=== PATIENT | female | born 1950 | race Caucasian/White ===

== ENCOUNTER 2019-04-30 06:22 | Day surgery (SDC) | payer MEDICARE, OTHER, SELFPAY ==
[2019-04-30] VITALS (7 sets, daily range): BP systolic 114–146; BP diastolic 59–81; PULSE 55–64; RESP 12–18; TEMP 36.6–36.8; O2SAT 96–100; BMI 29.0
--- NOTE | 2019-04-30 | PATH_ITS ---
[facility] Accession Number: [id number] . 01 Material submitted: . PART A: duodenum - DUODENAL BIOPSIES PART B: gastrointestinal site - GASTRIC ANTRUM BIOPSY PART C: gastrointestinal site - GASTRIC POLYP X2 PART D: gastrointestinal site - GASTRIC CARDIA BIOPSY PART E: esophagus - DISTAL ESOPHAGUS BIOPSIES . 02 Diagnosis: A. Duodenum, Biopsies: Duodenal mucosa with no diagnostic abnormality. Negative for active inflammation, features of sprue, dysplasia, or malignancy. . B. Stomach, Antrum, Biopsy: Antral mucosa with reactive gastropathy and mild chronic gastritis. Negative for Helicobacter by immunohistochemistry. Negative for intestinal metaplasia. Negative for dysplasia and malignancy. . C. Stomach, Polyp x2, Biopsy: Fundic gland polyp. Gastric hyperplastic polyp. Negative for intestinal metaplasia. No evidence of Helicobacter on H/E stain. Negative for dysplasia and malignancy. . D. Stomach, Cardia, Biopsy: Cardia type mucosa with foveolar hyperplasia. Negative for Helicobacter by immunohistochemistry. Negative for intestinal metaplasia. Negative for dysplasia and malignancy. . E. 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 Chronic active inflammation is also present. Negative for dysplasia and malignancy. . [facility] 05/04/2019 1722 Local . 02 Electronically signed: . Sherita Mccormick MD, Pathologist NPI- [id number] . 01 Gross description: . Part A: DUODENAL BIOPSIES: Received in formalin is 1 fragment(s) of noel, soft tissue measuring 0.3 x 0.2 x 0.2 cm submitted entirely in 1 cassette(s) Part B: GASTRIC ANTRUM BIOPSY: Received in formalin is 1 fragment(s) of noel, soft tissue measuring 0.2 x 0.1 x 0.1 cm submitted entirely in 1 cassette(s) Part C: GASTRIC POLYP X2: Received in formalin are 3 fragment(s) of noel, soft tissue measuring 0.1 x 0.1 x 0.1 cm to 0.6 x 0.5 x 0.5 cm submitted entirely in 1 cassette(s) Part D: GASTRIC CARDIA BIOPSY: Received in formalin are 2 fragment(s) of noel, soft tissue measuring 0.1 x 0.1 x 0.1 cm to 0.2 x 0.2 x 0.2 cm submitted entirely in 1 cassette(s) Part E: DISTAL ESOPHAGUS BIOPSIES: Received in formalin are 3 fragment(s) of noel, soft tissue measuring 0.1 x 0.1 x 0.1 cm to 0.2 x 0.1 x 0.1 cm submitted entirely in 1 cassette(s) /[facility] [place] 04/30/2019 2144 Local . 02 Microscopic: . B, D. Immunohistochemical stains for Helicobacter were performed on blocks B and D in order to evaluate for Helicobacter organisms and are both negative. The control stain showed appropriate reactivity. . E. An AB/PAS stain was performed to evaluate for intestinal metaplasia and is positive. The control stain showed appropriate reactivity. . * This test was developed and its performance characteristics determined by [facility]. It has not been cleared or approved by the U.S. Food and Drug Administration. The FDA has determined that such clearance or approval is not necessary. This test is used for clinical purposes. It should not be regarded as investigational or for research. . 02 Pathologist provided ICD-10: K22.70 . 02 CPT . 715703, 885463, 765016, 369827, 916229, Q57971, 264865 Performed at: 01 [facility] [address], [place], [place] [id number] MD Praful Lora MD Phone: [phone] Performed at: 02 [facility] [address] [place], [place] [id number] MD Sherita Mccormick MD Phone: [phone]
[2019-04-30] MEDS: SODIUM CHLORIDE 0.9% 1,000 ML 200 ML IV ×2 (07:10→08:27)
--- NOTE | 2019-04-30 07:44 | PM.PREOP ---
Pre-operative Note Interval Note History & Physical reviewed/Exam performed by Physician: Yes Changes to H&P: No ASA Class (for procedural sedation): II
--- NOTE | 2019-04-30 08:16 | PM.OP.ENDO ---
Operative Date/Time/Diagnoses Date of procedure: 04/30/19 Time of procedure: 08:16 Pre-op diagnosis: Acid refux, abdominal pain, constipation Post-op diagnosis: other (Gastritis, gastric polyps, hill grade 4 hiatal hernia; enodscopic noble's esophagus ) Procedure & Clinicians Study performed: Esophageal gastroduodenoscopy with biopsies of duodenum, gastric antrum, gastric polyps with hot snare, gastric cardia, GE junction with cold forceps. Attempted colonoscopy, but discontinued at splenic flexure due to poor prep and solid stool in the colon. Same procedure as scheduled: Yes Indications: Acid reflux, abdominal pain, constipation, personal history of polyps Surgeon: Delores Moralez Procedure Notes SCOAP/Timeout: Which performed Procedure in detail: The patient was brought to the room and placed in left lateral decubitus position with all bony prominences padded. A time-out was performed and then the patient was given procedural sedation starting with 2 mg of Versed and [100] mcg of fentanyl. Total of 6 mg of Versed and 150 micro g of fentanyl were given for the entire procedure. Vitals were monitored throughout the procedure and remained stable. Once adequately sedated the procedure was begun. A bite block was used to protect the patient's teeth, lips, and tongue. The gastroscope was placed through the bite block and over the tongue, and into the esophagus without incident. A tubular view of the esophagus was maintained as I advanced the scope down into the stomach. The scope was advanced all way to the 2nd and 3rd portion of the duodenum. The duodenum appeared normal, with a slight bit of erythema, and this was biopsied. I then pulled back out into the stomach and there was some low-grade antral gastritis, which was biopsied. There are multiple polyps in the stomach consistent with PPI use, and the 2 largest of these were removed for biopsy. I then retroflexed and looked up into the hiatus, and saw a Hill grade 4 hiatal hernia which was about 3 cm x 3 cm. There were more polyps by the gastric cardia, and these were removed for biopsy with cold forceps. Pulling back from the stomach into the esophagus I noted at her Z-line was irregular, and there were tongues of salmon-colored mucosa coming up into the esophagus for about 1 cm or greater. These were biopsied. The gastroscope was then withdrawn gradually out of the esophagus, the rest of which appeared fairly normal. The patient tolerated this portion the procedure well, and she was then transitioned for a colonoscopy. A rectal exam was then performed revealing [no significant abnormalities]. The colonoscope was then introduced to the rectum and advanced gradually, but there was solid stool in the way, which inhibited are view of the colon. It was not safe to proceed in that was non adequate view of the colon in order to do an appropriate colonoscopy. I got part way through the sigmoid colon and determined that the patient would need to re-prepped and receive another colonoscopy at a future date. At this point the procedure was discontinued. The scope was then withdrawn from the rectum the procedure was concluded. The patient tolerated the procedure well and was transferred to the PACU in stable condition. Scope withdrawal time: NA Sedation minutes: 48 Findings: Noble's esophagus, gastritis, hiatal hernia and polyp (Gastric) Specimen(s): other (Gastric polyps, gastric biopsies, duodenal biopsies, esophageal biopsies) Complications: none Impression: Mild gastritis, Noble's esophagus, gastric polyps Post-procedure Recommendations: Will call with biopsy results Plan for aftercare: Once we get the biopsy results, will decide on next steps regarding the upper GI portion. At some point she will need a repeat colonoscopy. We may coordinate this with the future upper endoscopy for surveillance. Follow up: weeks (2) Disposition: PACU
[2019-04-30] MEDS: LIDOCAINE 4% SOLN 50 ML 20 ML TOP (08:33)
[2019-04-30] MEDS: fentaNYL 250 MCG/5 ML INJ IV (08:34)
[2019-04-30] MEDS: MIDAZOLAM 5 MG/5 ML VIAL IV (08:34)
--- NOTE | 2019-04-30 09:42 | SUR.PHASEII ---
Dr. Moralze to bedside, spoke extensively to pt and her . Pt left when ready pt left in stable condition.
== END 2019-04-30 09:33 | disposition home or self-care (01) ==
PROVIDERS: PCP Internal Medicine; Visit Provider Surgery
PROC: 0DJ08ZZ Inspection of Upper Intestinal Tract, Via Natural or Artificial Opening Endoscopic (ICD-10-PCS; CPT 43235; principal; 2019-04-30 07:45)
PROC: 0DJD8ZZ Inspection of Lower Intestinal Tract, Via Natural or Artificial Opening Endoscopic (ICD-10-PCS; CPT 45378; 2019-04-30 07:45)
DX: K59.09 Other constipation (principal); R10.9 Unspecified abdominal pain; K21.9 Gastro-esophageal reflux disease without esophagitis; K29.50 Unspecified chronic gastritis without bleeding; K31.9 Disease of stomach and duodenum, unspecified; K22.70 Barrett's esophagus without dysplasia; Z53.09 Procedure and treatment not carried out because of other contraindication
CPT/HCPCS: 43251; 43239; 45330; 45378; 99152; 99153; J2250; J3010

== ENCOUNTER 2019-05-28 07:16 | Day surgery (SDC) | payer MEDICARE, OTHER, SELFPAY ==
[2019-05-28] VITALS (8 sets, daily range): BP systolic 105–135; BP diastolic 47–69; PULSE 50–82; RESP 10–18; TEMP 36.1–36.8; O2SAT 93–99; BMI 29.0
--- NOTE | 2019-05-28 07:54 | PM.HP.1 ---
History of Present Illness History of Present Illness Date Patient Seen: 05/28/19 Time Patient Seen: 07:54 Chief complaint: [id number] Narrative: This is a 68-year-old woman with history of GERD, chronic constipation, asthma, fibromyalgia, arthritis, glomerular nephritis of the right kidney, history of tubal ligation, history of laparoscopy who had EGD and upper endoscopy April 30, but was unable to complete the colonoscopy because of incomplete prep. Prior to that she had a colonoscopy in 2016 during which colon polyps were found. She was told to repeat colonosocpy in three years. She returns today for second attempt at colonoscopy. She has been taking double dose PPI and has had significant improvement in her GERD symptoms. ROS: She has blood in the urine from time to time which he says is secondary to her glomerular nephritis, joint pain joint swelling and muscle aches related to her arthritis, easy bruising and easy bleeding which she believes is related to her Celebrex medication. Thirteen system review is otherwise negative other than as mentioned below and in HPI. PE: GENERAL: Well groomed and cooperative. Appears stated age. Answers questions promptly and appropriately. Vital signs noted. HENT: Normocephalic, atraumatic. Hearing intact. Oral mucosa is pink and moist. EYES: Conjunctiva pink, sclera white, no periorbital swelling. CARDIOVASCULAR: Regular rate. No pedal edema. RESPIRATORY: Non-tachypneic, breathing comfortably on room air. GASTROINTESTINAL: Abdomen soft; well-healed umbilical incisional scar, mildly distended, no masses, no tenderness GENITALURINARY: No flank tenderness. MUSCULOSKELETAL: Equal tone and mass bilaterally. SKIN: Warm, dry, soft, appropriate color for ethnicity. No other lesions, rashes, or wounds. NEURO: Fine resting tremor. Alert and Oriented X 3. No gross sensory deficits, or cognitive issues. PSYCH: Appropriate affect and mood. Patient History Medical History Achilles tendon injury (Acute) Acid reflux (Acute) Adhesion of intestine (Acute) Arthritis (Acute) Asthma (Acute) Fibromyalgia (Acute) Nephritis (Acute) Reflex neurogenic bladder (Acute) Tonsillectomy planned (Acute) Surgical History History of Achilles tendon repair (Acute) History of bilateral tubal ligation (Acute) History of laparoscopy (Acute) History of tonsillectomy (Acute) History of tubal ligation (Inactive) Hx of breast biopsy (Acute) Family & Social History Social History: household members spouse Tobacco & Substance use: Smoking Status Never smoker alcohol intake current alcohol intake frequency 0-2 drinks per day Substance Use Type prescription drug Meds Home Medications and Allergies Home Medications Medication Instructions Recorded Confirmed Type albuterol sulfate 90 mcg/actuation 2 puff INHALATION Q6H PRN 04/08/19 05/28/19 History aerosol inhaler aloe vera 25 mg capsule 25 mg PO DAILY 04/08/19 05/28/19 History calcium citrate 600 mg PO DAILY 04/08/19 05/28/19 History celecoxib 200 mg capsule 200 mg PO BID 04/08/19 05/28/19 History cetirizine 10 mg capsule 10 mg PO DAILY cap 04/08/19 05/28/19 History cranberry 500 mg capsule 500 mg PO DAILY 04/08/19 05/28/19 History fluticasone propionate 110 2 puff INHALATION BID 04/08/19 05/28/19 History mcg/actuation HFA aerosol inhaler lactobacillus combination no.4 15 15,000 mmu cells PO DAILY 04/08/19 05/28/19 History billion cell capsule levothyroxine 75 mcg capsule 75 mcg PO DAILY 04/08/19 05/28/19 History lysine 1,000 mg tablet 1,000 mg PO DAILY 04/08/19 05/28/19 History multivitamin 1 tab PO DAILY 04/08/19 05/28/19 History niacin 100 mg tablet 100 mg PO BEDTIME 04/08/19 05/28/19 History omega-3 fatty acids-fish oil 300 1 cap PO DAILY 04/08/19 05/28/19 History mg-500 mg capsule pregabalin 150 mg capsule 150 mg PO BEDTIME 04/08/19 05/28/19 History rabeprazole 20 mg tablet,delayed 20 mg PO BID 04/08/19 05/28/19 History release sertraline 100 mg tablet 150 mg PO DAILY 04/08/19 05/28/19 History sulfamethoxazole 800 1 tab PO DAILY 04/08/19 05/28/19 History mg-trimethoprim 160 mg tablet zaleplon 10 mg capsule 10 mg PO DAILY PRN 04/08/19 05/28/19 History sodium,potassium,mag sulfates 17.5 177 ml PO DAILY #354 ml 05/26/19 Rx gram-3.13 gram-1.6 gram oral soln Allergies Allergy/AdvReac Type Severity Reaction Status Date / Time epinephrine Allergy Severe BREATHING Verified 05/28/19 07:42 latex Allergy Severe RASH Verified 05/28/19 07:42 nitrofurantoin Allergy Severe BREATHING Verified 05/28/19 07:42 [From Macrodantin] PROBLEM soap [From Betadine] Allergy Severe ROSE Verified 05/28/19 07:42 povidone-iodine Allergy Intermediate ROSE Verified 05/28/19 07:42 [From Betadine] anesthesia - some types AdvReac Mild N&V Uncoded 04/30/19 07:24 Assessment & Plan Assessment and plan (1) Personal history of colonic polyps: Problem details: Risks and benefits of screening colonoscopy and possible polypectomy were discussed with the patient including risk of bleeding, perforation, need for additional procedures, risks of anesthesia. The patient desires to proceed with the colonoscopy procedure. Current visit: No Status: Acute (2) Chronic constipation: Current visit: No Status: Acute Quality VTE Deep Vein Thrombosis/Pulmonary Embolism Present on Admission: No
[2019-05-28] MEDS: SODIUM CHLORIDE 0.9% 1,000 ML 200 ML IV (07:59)
--- NOTE | 2019-05-28 09:10 | PM.OP.ENDO ---
Operative Date/Time/Diagnoses Date of procedure: 05/28/19 Time of procedure: 09:10 Pre-op diagnosis: Personal history of colon polyps Post-op diagnosis: other (Mild diverticulosis, no polyps seen on this exam) Procedure & Clinicians Study performed: Surveillance colonoscopy Same procedure as scheduled: Yes Indications: Personal history of colon polyps Surgeon: Delores Moralez Procedure Notes SCOAP/Timeout: Performed Procedure in detail: The patient was brought to the room and placed in left lateral decubitus position with all bony prominences padded. A time-out was performed and then the patient was given procedural sedation starting with 2 mg of Versed and [100] mcg of fentanyl. Total of 7 mg of Versed and 250 micro g of fentanyl were given for the entire procedure. Vitals were monitored throughout the procedure and remained stable. Once adequately sedated the procedure was begun. A rectal exam was performed revealing [no abnormalities]. The colonoscope was then introduced to the rectum and advanced to the cecum in the usual fashion. The colon was very tortuous, and I had to switch from pediatric to adult scope during the procedure because I was not able to navigate the twists in her colon with a pediatric scope. The patient had a significant discomfort during the procedure, similar to what you see in someone who has underlying IBS. []The cecum was identified by the appendiceal orifice, the mucosal tri-fold, and the ileocecal valve. The scope was then retracted while rotating side to side and examining each mucosal fold. Mild diverticulosis was seen in the sigmoid colon. No polyps or masses were seen. Prep was adequate. [] At the conclusion of the procedure retroflexion was performed and [small grade 1-2 internal hemorrhoids without stigmata of bleeding were seen]. The scope was then withdrawn from the rectum the procedure was concluded. The patient tolerated the procedure well and was transferred to the PACU in stable condition. Scope withdrawal time: 8 Sedation minutes: 35 Findings: diverticulosis Specimen(s): none sent Complications: none Impression: Very tortuous colon, low-grade diverticulosis, otherwise normal Post-procedure Recommendations: Other recommendation (Colonoscopy in 7 years due to personal history of colon polyps, if healthy enough for the procedure that time) Follow up: as needed Disposition: PACU
[2019-05-28] MEDS: MIDAZOLAM 5 MG/5 ML VIAL IV (09:13)
[2019-05-28] MEDS: fentaNYL 250 MCG/5 ML INJ IV (09:14)
--- NOTE | 2019-05-28 09:39 | SUR.PHASEI ---
Patient sitting up in stretcher, denies pain, VSS. Taking ice chips without difficulty. Abdomen soft.
== END 2019-05-28 10:10 | disposition home or self-care (01) ==
PROVIDERS: PCP Internal Medicine; Referring Provider Surgery; Visit Provider Surgery
PROC: 0DJD8ZZ Inspection of Lower Intestinal Tract, Via Natural or Artificial Opening Endoscopic (ICD-10-PCS; CPT 45378; principal; 2019-05-28 08:30)
DX: Z12.11 Encounter for screening for malignant neoplasm of colon (principal); Z86.010 Personal history of colon polyps; K57.30 Diverticulosis of large intestine without perforation or abscess without bleeding
CPT/HCPCS: G0105; 99152; 99153; J2250; J3010

== ENCOUNTER 2019-08-25 10:59 | Emergency (ER) | payer MEDICARE, OTHER, SELFPAY ==
[2019-08-25] VITALS (7 sets, daily range): BP systolic 139–188; BP diastolic 63–111; PULSE 50–63; RESP 12–19; TEMP 36.9; O2SAT 97–99; BMI 28.9
[2019-08-25 11:48] LABS: Add Manual Diff / Slide Review NO; Basophils Absolute Auto 100 /uL (0-100); Basophils Percent Auto 0.7 % (0-2); Eosinophils Absolute Auto 0 /uL (0-450); Eosinophils Percent Auto 0.6 % (2-4); Hematocrit 37.4 % (36-46); Hemoglobin 12.3 g/dL (12.0-16.0); Lymphocytes Absolute Auto 1600 /uL (1100-4500); Lymphocytes Percent Auto 20.2 % (25-40); Mean Corpuscular HGB Conc 32.9 % (30-36); Mean Corpuscular Hemoglobin 29.9 PG (26-34); Mean Corpuscular Volume 90.9 fL (80-100); Monocytes Absolute Auto 500 /uL (0-900); Monocytes Percent Auto 6.7 % (3-14); Neutrophils Absolute Auto 5800 /uL (1500-7000); Neutrophils Percent Auto 71.8 % (50-75); Platelet Count 208 X10^3/uL (150-400); Red Blood Cell Count 4.11 X10^6/uL (4.0-5.2); Red Cell Distribution Width 13.3 % (11.6-14.8)
--- NOTE | 2019-08-25 11:51 | DI.CT.S_ITS ---
PROCEDURE: CT HEAD/BRAIN WO CON INDICATIONS: blurry vision, weakness TECHNIQUE: Noncontrast 4.5 mm thick angled axial sections acquired from the foramen magnum to the vertex, with coronal and sagittal reformats. For radiation dose reduction, the following was used: automated exposure control, adjustment of mA and/or kV according to patient size. COMPARISON: None. FINDINGS: Image quality: Excellent. CSF spaces: Basal cisterns are patent. No extra-axial fluid collections. Ventricles are normal in size and shape. Brain: No midline shift. No intracranial masses or hemorrhage. Garber-white matter interface is normal. Skull and face: Calvarium and visualized facial bones are intact, without suspicious lesions. Sinuses: Visualized sinuses and mastoids are clear. IMPRESSION: Unremarkable head CT. No evidence of acute stroke, hemorrhage, or mass. Dictated by: Mino Wick M.D. on 08/25/2019 at 11:12 Approved by: Mino Wick M.D. on 08/25/2019 at 11:13
--- NOTE | 2019-08-25 11:52 | DI.CT.S_ITS ---
PROCEDURE: CT CERVICAL SPINE WO CON INDICATIONS: mult falls TECHNIQUE: Noncontrast 3 mm thick sections acquired from the skull base to the T4 level. Sagittal and coronal reformats were then constructed. For radiation dose reduction, the following was used: automated exposure control, adjustment of mA and/or kV according to patient size. COMPARISON: None. FINDINGS: Image quality: Excellent. Bones: No fractures or dislocations. Visualized superior ribs are intact. Moderate to severe cervical spondylitic change, with multilevel prominent left greater than right facet arthropathy and disc height loss and uncovertebral joint osteophyte rotation centered at C5-C6 and C6-C7. Soft tissues: Prevertebral soft tissues are normal in thickness. No paravertebral hematomas. No apical pneumothoraces. IMPRESSION: 1. No evidence acute cervical fracture or dislocation. 2. Moderate to severe cervical spondylitic change. Dictated by: Mino Wick M.D. on 08/25/2019 at 11:13 Approved by: Mino Wick M.D. on 08/25/2019 at 11:22
[2019-08-25 11:54] LABS: Alanine Aminotransferase 15 IU/L (<35); Albumin Globulin Ratio 1.4 (1.0-2.8); Alkaline Phosphatase 92 U/L (38-126); Aspartate Aminotransferase 24 IU/L (14-36); BUN Creatinine Ratio 32.8 (6-22); Bilirubin Total 0.4 mg/dL (0.2-1.3); Blood Urea Nitrogen 19 mg/dL (7-17); Calcium 8.6 mg/dL (8.4-10.2); Carbon Dioxide 23 mmol/L (22-32); Chloride 108 mmol/L (98-107); Estimated Glomerular Filt Rate > 60.0 mL/min (>60); Ethanol (ETOH) < 10 mg/dL; Globulin 2.9 g/dL (1.7-4.1); Glucose 107 mg/dL (80-110); HEMOLYSIS < 15 (0-50); Potassium 3.7 mmol/L (3.4-5.1); Sodium 140 mmol/L (137-145); Total Protein 6.9 g/dL (6.3-8.2)
--- NOTE | 2019-08-25 11:57 | ED.NEUROSD ---
HPI - Neuro Symptoms/Deficit <Deidre Romero, UNISAW OPERATOR-BC - Last Filed: 08/25/19 16:13> General Chief Complaint: Neuro Symptoms/Deficit Stated Complaint: Neuro Symptoms Time Seen by Provider: 08/25/19 11:15 Source: patient and EMS Mode of arrival: EMS Limitations: no limitations History of Present Illness HPI Narrative: The patient is a 68-year-old female nonsmoker with a history of colonic polyps and constipation who presents with a chief complaint of neurological changes. She states she has had chronic left lower weakness has been ongoing for almost a year at this point. She has seen a cloth calender for this, had a referral to a neurologist but was not able to get in because of coronavirus. She states she woke up at this morning at 4:00 a.m. and felt her baseline. Then she went back to bed, woke up at 9:00 a.m. and had 2 minutes of blurry vision. She also notes decreased knitted cloth examiner strength in her right hand. She states she has ?clumsy at home and trips a lot.She states that she has had multiple falls recently at home. She currently states that her vision is back at baseline. She is concerned as her daughter has multiple sclerosis. She denies any fever, chest pain, shortness of breath. She denies any numbness or tingling. She denies any new incontinence. 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 The patient reports multiple falls at home a she is ?clumsy. On Anticoagulants: No Related Data Home Medications Medication Instructions Recorded Confirmed albuterol sulfate 90 mcg/actuation 2 puff INHALATION Q6H PRN 04/08/19 05/28/19 aerosol inhaler aloe vera 25 mg capsule 25 mg PO DAILY 04/08/19 05/28/19 calcium citrate 600 mg PO DAILY 04/08/19 05/28/19 celecoxib 200 mg capsule 200 mg PO BID 04/08/19 05/28/19 cetirizine 10 mg capsule 10 mg PO DAILY cap 04/08/19 05/28/19 cranberry 500 mg capsule 500 mg PO DAILY 04/08/19 05/28/19 fluticasone propionate 110 2 puff INHALATION BID 04/08/19 05/28/19 mcg/actuation HFA aerosol inhaler lactobacillus combination no.4 15 15,000 mmu cells PO DAILY 04/08/19 05/28/19 billion cell capsule levothyroxine 75 mcg capsule 75 mcg PO DAILY 04/08/19 05/28/19 lysine 1,000 mg tablet 1,000 mg PO DAILY 04/08/19 05/28/19 multivitamin 1 tab PO DAILY 04/08/19 05/28/19 niacin 100 mg tablet 100 mg PO BEDTIME 04/08/19 05/28/19 omega-3 fatty acids-fish oil 300 1 cap PO DAILY 04/08/19 05/28/19 mg-500 mg capsule pregabalin 150 mg capsule 150 mg PO BEDTIME 04/08/19 05/28/19 rabeprazole 20 mg tablet,delayed 20 mg PO BID 04/08/19 05/28/19 release sertraline 100 mg tablet 150 mg PO DAILY 04/08/19 05/28/19 sulfamethoxazole 800 1 tab PO DAILY 04/08/19 05/28/19 mg-trimethoprim 160 mg tablet zaleplon 10 mg capsule 10 mg PO DAILY PRN 04/08/19 05/28/19 Previous Rx's Medication Instructions Recorded sodium,potassium,mag sulfates 17.5 177 ml PO DAILY #354 ml 05/26/19 gram-3.13 gram-1.6 gram oral soln Allergies Allergy/AdvReac Type Severity Reaction Status Date / Time epinephrine Allergy Severe BREATHING Verified 08/25/19 11:22 latex Allergy Severe RASH Verified 08/25/19 11:22 nitrofurantoin Allergy Severe BREATHING Verified 08/25/19 11:22 [From Macrodantin] PROBLEM soap [From Betadine] Allergy Severe ROSE Verified 08/25/19 11:22 povidone-iodine Allergy Intermediate ROSE Verified 08/25/19 11:22 [From Betadine] anesthesia - some types AdvReac Mild N&V Uncoded 08/25/19 11:22 Review of Systems <TERRY Pereyra- - Last Filed: 08/25/19 16:13> Review of Systems Narrative: GENERAL: Denies chills, fatigue, malaise, fever, sweats. HEENT: Denies sinus pain, ear pain, sore throat, difficulty swallowing, dizziness. RESPIRATORY: Denies dyspnea, cough, wheezing, hemoptysis, sputum. CARDIOVASCULAR: Denies chest pain, palpitations, orthopnea, edema, GASTROINTESTINAL: Denies nausea, vomiting, abdominal pain, diarrhea, constipation, melena. : Denies dysuria, frequency, incontinence, hematuria, urinary retention. MUSCULOSKELETAL: See HPI SKIN: Denies rash, skin lesions, or other NEUROLOGIC: She had PI PSYCHIATRIC: No concerning psychosocial issues. 12 point review of systems is negative except for those stated above Patient History <LOREN Pereyra - Last Filed: 08/25/19 16:13> Medical History Achilles tendon injury (Acute) Acid reflux (Acute) Adhesion of intestine (Acute) Arthritis (Acute) Asthma (Acute) Fibromyalgia (Acute) Nephritis (Acute) Reflex neurogenic bladder (Acute) Tonsillectomy planned (Acute) Surgical History History of Achilles tendon repair (Acute) History of bilateral tubal ligation (Acute) History of laparoscopy (Acute) History of tonsillectomy (Acute) History of tubal ligation (Inactive) Hx of breast biopsy (Acute) Social History household members: spouse Smoking Status: Never smoker alcohol intake: current Smoking Status: Never smoker alcohol intake frequency: 0-2 drinks per day Substance Use Type: does not use Exam <LOREN Pereyra - Last Filed: 08/25/19 16:13> Narrative Exam Narrative: GENERAL: This is a well-nourished, well-developed patient, no acute distress HEAD: Atraumatic. Normocephalic. No temporal or scalp tenderness. EYES: Pupils equal round and reactive. Extraocular motions intact. No scleral icterus. No injection or drainage. ENT: Nose without bleeding, purulent drainage or septal hematoma. Throat without erythema, tonsillar hypertrophy or exudate. Uvula midline. Airway patent. NECK: Trachea midline. No JVD or lymphadenopathy. Supple, nontender, no meningeal signs. CARDIOVASCULAR: Regular rate and rhythm RESPIRATORY: Clear to auscultation. Breath sounds equal bilaterally. No wheezes, rales, or rhonchi. No cough. No increased respiratory effort. No accessory muscle use. GASTROINTESTINAL: Abdomen soft, non-tender, nondistended. No hepato-splenomegaly, or palpable masses. No guarding. EXTREMITIES: No clubbing, cyanosis, or edema. No joint tenderness, effusion, or edema noted. BACK: Cervical spine pain to palpation. No palpable step-offs or deformity CT or L-spine. No pain to palpation T or L-spine. NEURO: AOx3. Weakness noted left hand knitted cloth examiner strength, generalized weakness left leg. No gross cranial nerve deficit. Alert and oriented. Interactive. NIH of 1 as documentation SKIN: No rash or erythema on visible skin Initial Vital Signs Initial Vital Signs: Vital Signs Temperature 98.4 F 08/25/19 11:07 Pulse Rate 63 08/25/19 11:07 Respiratory Rate 19 08/25/19 11:07 Blood Pressure 188/81 H 08/25/19 11:07 Pulse Oximetry 99 08/25/19 11:07 <Regan Louis MD - Last Filed: 08/26/19 07:17> Initial Vital Signs Initial Vital Signs: Vital Signs Temperature 98.4 F 08/25/19 11:07 Pulse Rate 63 08/25/19 11:07 Respiratory Rate 08/25/19 11:07 Blood Pressure 188/81 H 08/25/19 11:07 Pulse Oximetry 99 08/25/19 11:07 Scores <LOREN Pereyra - Last Filed: 08/25/19 16:13> GCS Huber coma scale eye opening: Spontaneous [place] coma scale verbal response: Orientated Hub[place] coma scale motor response: Obey commands [place] coma scale total score: 15 NIH Stroke Scale Level of Conciousness: Alert, keenly responsive Ask month/age: Answers both questions correctly. Open/close eyes, close hand: Performs both tasks correctly Best gaze horizontal: Normal Visual jimenez: No visual loss Facial palsy: Normal symetrical movement Left arm drift: No drift for full 10 sec Right arm drift: No drift for full 10 sec Left leg drift: Drifts down, not to bed Right leg drift: No drift for full 10 sec Limb ataxia: Absent Sensory on face/arms/legs: Normal, no sensory loss Best language: No aphasia, normal Dysarthria: Normal Extinction or inattention: No abnormality Total NIH Stroke scale score: 1 Course <LOREN Pereyra - Last Filed: 08/25/19 16:13> Orders Ordered: Discontinued Medications Sodium Chloride (Normal Saline 0.9%) 1,000 mls @ 150 mls/hr IV CONT HIMA Last Infusion: 08/25/19 15:57 Dose: 150 mls/hr Documented by: Admin: 08/25/19 12:41 Dose: 150 mls/hr Documented by: NAVJOT Vital Signs Vital signs: Vital Signs - 8 hr 08/25/19 11:07 08/25/19 11:26 08/25/19 11:30 Temperature 98.4 F 98.4 F Pulse Rate 63 60 58 L Respiratory Rate 19 12 18 Blood Pressure 188/81 H Blood Pressure [Left Arm] 163/73 H 162/78 H Pulse Oximetry 99 99 99 08/25/19 13:53 08/25/19 15:10 08/25/19 15:30 Temperature Pulse Rate 53 L 59 L 50 L Respiratory Rate 17 12 17 Blood Pressure Blood Pressure [Left Arm] 139/111 H 147/69 H 143/63 H Pulse Oximetry 99 97 99 08/25/19 15:56 Temperature Pulse Rate 52 L Respiratory Rate 12 Blood Pressure 143/63 H Blood Pressure [Left Arm] Pulse Oximetry 99 <Regan Louis MD - Last Filed: 08/26/19 07:17> Orders Ordered: Discontinued Medications Sodium Chloride (Normal Saline 0.9%) 1,000 mls @ 150 mls/hr IV CONT HIMA Last Infusion: 08/25/19 15:57 Dose: 150 mls/hr Documented by: Admin: 08/25/19 12:41 Dose: 150 mls/hr Documented by: NAVJOT Vital Signs Vital signs: Vital Signs - 8 hr 08/25/19 11:07 08/25/19 11:26 08/25/19 11:30 Temperature 98.4 F 98.4 F Pulse Rate 63 60 58 L Respiratory Rate 19 12 18 Blood Pressure 188/81 H Blood Pressure [Left Arm] 163/73 H 162/78 H Pulse Oximetry 99 99 99 08/25/19 13:53 08/25/19 15:10 08/25/19 15:30 Temperature Pulse Rate 53 L 59 L 50 L Respiratory Rate 17 12 17 Blood Pressure Blood Pressure [Left Arm] 139/111 H 147/69 H 143/63 H Pulse Oximetry 99 97 99 08/25/19 15:56 Temperature Pulse Rate 52 L Respiratory Rate 12 Blood Pressure 143/63 H Blood Pressure [Left Arm] Pulse Oximetry 99 MDM - Neuro Symptoms/Deficit <DANE PereyraP- - Last Filed: 08/25/19 16:13> Lab Data Result diagrams: 08/25/19 11:08 08/25/19 11:08 Labs: Lab Results 08/25/19 08/25/19 08/25/19 Range/Units 11:08 11:08 11:08 WBC 8.0 (4.5-11.0) X10^3/uL RBC 4.11 (4.0-5.2) X10^6/uL Hgb 12.3 (12.0-16.0) g/dL Hct 37.4 (36-46) % MCV 90.9 (80-100) fL MCH 29.9 (26-34) PG MCHC 32.9 (30-36) % RDW 13.3 (11.6-14.8) % Plt Count 208 (150-400) X10^3/uL Neut % (Auto) 71.8 (50-75) % Lymph % (Auto) 20.2 L (25-40) % [place] % (Auto) 6.7 (3-14) % Eos % (Auto) 0.6 L (2-4) % Baso % (Auto) 0.7 (0-2) % Neut # (Auto) 5800 (9333-4663) /uL Lymph # (Auto) 1600 (1030-5501) /uL [place] # (Auto) 500 (0-900) /uL Eos # (Auto) 0 (0-450) /uL Baso # (Auto) 100 (0-100) /uL PT 12.0 (10.1-12.7) SECONDS INR 1.0 (0.9-1.3) APTT 38 H (26.4-36.2) SECONDS Sodium 140 (137-145) mmol/L Potassium 3.7 (3.4-5.1) mmol/L Chloride 108 H (98-107) mmol/L Carbon Dioxide 23 (22-32) mmol/L BUN 19 H (7-17) mg/dL Creatinine 0.58 (0.52-1.04) mg/dL Estimated GFR > 60.0 (>60) mL/min BUN/Creatinine Ratio 32.8 H (6-22) Glucose 107 (80-110) mg/dL Calcium 8.6 (8.4-10.2) mg/dL Total Bilirubin 0.4 (0.2-1.3) mg/dL AST 24 (14-36) IU/L ALT 15 (<35) IU/L Alkaline Phosphatase 92 (38-126) U/L Total Protein 6.9 (6.3-8.2) g/dL Albumin 4.0 (3.5-5.0) g/dL Globulin 2.9 (1.7-4.1) g/dL Albumin/Globulin Ratio 1.4 (1.0-2.8) Ethyl Alcohol < 10 ( - 10) mg/dL Point of Care Testing Glucose POC 104 Urine Dip Bedside Urine Glucose Negative Bedside Urine Bilirubin - Negative Bedside Urine Ketone - Negative Urine Specific [place] 1.010 Bedside Urine Occult Blood - Negative Bedside Urine pH 7.5 Bedside Urine Protein - Negative Bedside Urine Urobilinogen - Negative Bedside Urine Nitrite - Negative Bedside Urine Leukocytes - Negative Esterase Imaging Data CT scan - head: Radiologist's Impression: [place] [address] CT Scan Report Signed Patient: Slime Lindsey#: [id number] : [id number] Age/Sex: 68 / FDate of Service: 08/25/19 Loc: ED Accession Number: [id number] Procedure: CT head/brain wo con Ordering Provider: Deidre Romero [facility] PROCEDURE: CT HEAD/BRAIN WO CON INDICATIONS: blurry vision, weakness TECHNIQUE: Noncontrast 4.5 mm thick angled axial sections acquired from the foramen magnum to the vertex, with coronal and sagittal reformats. For radiation dose reduction, the following was used: automated exposure control, adjustment of mA and/or kV according to patient size. COMPARISON: None. FINDINGS: Image quality: Excellent. CSF spaces: Basal cisterns are patent. No extra-axial fluid collections. Ventricles are normal in size and shape. Brain: No midline shift. No intracranial masses or hemorrhage. Garber-white matter interface is normal. Skull and face: Calvarium and visualized facial bones are intact, without suspicious lesions. Sinuses: Visualized sinuses and mastoids are clear. IMPRESSION: Unremarkable head CT. No evidence of acute stroke, hemorrhage, or mass. Dictated by: Mino Wick M.D. on 08/25/2019 at 11:12 Approved by: Mino Wick M.D. on 08/25/2019 at 11:13 CT - cervical spine: Radiologist's Impression: [address] [address] [address] Scan Report Signed Patient: Slime Lindsey#: [id number] : [id number] Age/Sex: 68 / FDate of Service: 08/25/19 Loc: ED Accession Number: [id number] Procedure: CT cervical spine wo con Ordering Provider: Deidre Romero PROCEDURE: CT CERVICAL SPINE WO CON INDICATIONS: mult falls TECHNIQUE: Noncontrast 3 mm thick sections acquired from the skull base to the T4 level. Sagittal and coronal reformats were then constructed. For radiation dose reduction, the following was used: automated exposure control, adjustment of mA and/or kV according to patient size. COMPARISON: None. FINDINGS: Image quality: Excellent. Bones: No fractures or dislocations. Visualized superior ribs are intact. Moderate to severe cervical spondylitic change, with multilevel prominent left greater than right facet arthropathy and disc height loss and uncovertebral joint osteophyte rotation centered at C5-C6 and C6-C7. Soft tissues: Prevertebral soft tissues are normal in thickness. No paravertebral hematomas. No apical pneumothoraces. IMPRESSION: 1. No evidence acute cervical fracture or dislocation. 2. Moderate to severe cervical spondylitic change. Dictated by: Mino Wick M.D. on 08/25/2019 at 11:13 Approved by: Mino Wick M.D. on 08/25/2019 at 11:22 CTA - brain/neck: Radiologist's Impression: [address] [place] [address] [id number] [address] Scan Report Signed Patient: Giovanni Lindsey#: [id number] : [id number] Age/Sex: 68 / FDate of Service: 08/25/19 Loc: ED Accession Number: [id number] Procedure: CT angio head and neck Ordering Provider: Deidre Romero PROCEDURE: CT ANGIO HEAD AND NECK INDICATIONS: blurry vision episode, dec strength right hand TECHNIQUE: Pre-contrast 4.5 mm thick sections acquired from the foramen magnum to the vertex. After the administration of intravenous contrast, 1 mm thick sections acquired from the aortic arch through the [place]. Post-contrast 4.5 mm thick sections then re-acquired from the foramen magnum to the vertex. 3-dimensional lwwmnbn-otyicdkwx-zpllsdliwg (MIP) and/or volume rendering reformats were acquired of the central intracranial vasculature and neck separately. COMPARISON: [facility], CT, CT HEAD/BRAIN WO CON, 08/25/2019, 11:49. FINDINGS: Image quality: Excellent. BRAIN: CSF spaces: Ventricles are normal in size and shape. Basal cisterns are patent. No extra-axial fluid collections. Brain: No midline shift. No intracranial bleeds or masses. Garber-white matter interface appears intact. Skull and face: Calvarium and facial bones appear intact, without suspicious lesions. Orbits appear normal. Sinuses: Sinuses and mastoids are clear. HEAD CT ANGIOGRAPHY: Anterior circulation: Intracranial internal carotid arteries are normal in flow. Atherosclerotic calcification noted in the cavernous segment of the right internal carotid artery which causes mild, short segment stenosis. The flow within the paired anterior cerebral arteries is normal and symmetric. The flow within the middle cerebral arteries is normal and symmetric. The anterior communicating artery is seen. No aneurysms are seen. Posterior circulation: Visualized portions of the vertebral arteries demonstrate normal caliber, and join to form a normal appearing basilar artery. Flow within the posterior cerebral arteries is normal and symmetric. No aneurysms are seen. The dural sinuses demonstrate normal postcontrast enhancement. NECK CT ANGIOGRAPHY: Carotid system: The great vessels demonstrate a conventional anatomy as they arise from the aortic arch. The origins of the common carotid arteries appear patent. The common carotid arteries demonstrate normal caliber and courses. Atherosclerotic calcifications noted in the origins of the internal carotid arteries this causes less than 50% stenosis of the vessels. Posterior circulation: The origins of the vertebral arteries both appear widely patent. The more superior extracranial portions of both vertebral arteries also demonstrate normal courses and calibers. They join to form a normal appearing basilar artery. Soft tissues: Visualized neck soft tissues demonstrate no suspicious abnormalities. Bones: No suspicious bony lesions. Spine degenerative disc disease and facet arthropathy.Visualized cervical spine appears normally aligned. IMPRESSION: 1. No acute intracranial disease process. 2. No large vessel occlusion, hemodynamically significant stenosis, vascular dissection or aneurysm. Any quantitative measurements of stenosis were performed using NASCET criteria. Dictated by: Brandi Gonzales MD, PhD on 08/25/2019 at 14:16 Approved by: Brandi Gonzales MD, PhD on 08/25/2019 at 14:25 ECG Data Attestation: I personally reviewed and interpreted this ECG as follows: Interpretation: Sinus bradycardia. Ventricular rate 57. No ectopy noted. No ST elevation or depression noted. P.r. interval 187. QRS 121. Viewed by Dr. Louis MDM Narrative Medical decision making narrative: The patient is a 68-year-old female who presents with a chief complaint of 2 minutes of bilateral blurry vision this morning at 9:00 a.m.. She most recently woke up normally at 4:00 a.m., then woke up at 9:00 a.m. had the blurry vision and noticed some decreased strength in her right hand. She has a long history of left-sided weakness for which she has been referred to neurology. Her NIH is 1, cause of point is decreased strength left leg, which again has been chronic for almost a year at this point time. She had a normal head CT, given her multiple falls recently I did get a CT of her C-spine with immobilization which came back with no acute findings other than spondylitic changes, and a normal CTA. I did discuss the patient's evaluation and workup with Dr. Louis. Given the patient's complicated history, chronic lower leg weakness etcetera, I did speak with the patient's primary care provider Dr. Marmolejo after her labs and images resulted. He stated that she could be discharged to follow-up with him in office tomorrow. They plan on referring as soon as possible to Neurology given her chronic weakness. Discussed the possibility of home physical therapy. Patient has been are okay with this plan. I discussed at length come back to emergency department for any acute concerns such as chest pain, shortness of breath, concern of heart attack stroke etcetera. Patient and state understanding return precautions as well as follow-up care. No questions or concerns upon discharge. <Regan Louis MD - Last Filed: 08/26/19 07:17> Lab Data Labs: Lab Results 08/25/19 08/25/19 08/25/19 Range/Units 11:08 11:08 11:08 WBC 8.0 (4.5-11.0) X10^3/uL RBC 4.11 (4.0-5.2) X10^6/uL Hgb 12.3 (12.0-16.0) g/dL Hct 37.4 (36-46) % MCV 90.9 (80-100) fL MCH 29.9 (26-34) PG MCHC 32.9 (30-36) % RDW 13.3 (11.6-14.8) % Plt Count 208 (150-400) X10^3/uL Neut % (Auto) 71.8 (50-75) % Lymph % (Auto) 20.2 L (25-40) % [place] % (Auto) 6.7 (3-14) % Eos % (Auto) 0.6 L (2-4) % Baso % (Auto) 0.7 (0-2) % Neut # (Auto) 5800 (0288-7945) /uL Lymph # (Auto) 1600 (9185-6813) /uL [place] # (Auto) 500 (0-900) /uL Eos # (Auto) 0 (0-450) /uL Baso # (Auto) 100 (0-100) /uL PT 12.0 (10.1-12.7) SECONDS INR 1.0 (0.9-1.3) APTT 38 H (26.4-36.2) SECONDS Sodium 140 (137-145) mmol/L Potassium 3.7 (3.4-5.1) mmol/L Chloride 108 H (98-107) mmol/L Carbon Dioxide 23 (22-32) mmol/L BUN 19 H (7-17) mg/dL Creatinine 0.58 (0.52-1.04) mg/dL Estimated GFR > 60.0 (>60) mL/min BUN/Creatinine Ratio 32.8 H (6-22) Glucose 107 (80-110) mg/dL Calcium 8.6 (8.4-10.2) mg/dL Total Bilirubin 0.4 (0.2-1.3) mg/dL AST 24 (14-36) IU/L ALT 15 (<35) IU/L Alkaline Phosphatase 92 (38-126) U/L Total Protein 6.9 (6.3-8.2) g/dL Albumin 4.0 (3.5-5.0) g/dL Globulin 2.9 (1.7-4.1) g/dL Albumin/Globulin Ratio 1.4 (1.0-2.8) Ethyl Alcohol < 10 ( - 10) mg/dL Point of Care Testing Glucose POC 104 Urine Dip Bedside Urine Glucose Negative Bedside Urine Bilirubin - Negative Bedside Urine Ketone - Negative Urine Specific [place] 1.010 Bedside Urine Occult Blood - Negative Bedside Urine pH 7.5 Bedside Urine Protein - Negative Bedside Urine Urobilinogen - Negative Bedside Urine Nitrite - Negative Bedside Urine Leukocytes - Negative Esterase Discharge Plan Departure Patient Disposition: Home Clinical Impression: Weakness, Blurring of vision Discharge Date/Time: 08/25/19 15:57 Instructions: DI for Muscle Weakness Activity Restrictions/Additional Instructions: Thank you for trusting us with your care today. Today we did a CT of your head, CT of your C-spine, as well as a CT angiogram of your head and neck. Your results came back well. Your lab work also came back well. I spoke with Dr. Marmolejo today. He would like you to call his office in the morning to get in tomorrow. He plans to proceed with referring you to Neurology. As discussed, please come back to the emergency department for any acute concerns such as concern of heart attack or stroke etcetera. Prescriptions: No Action sodium,potassium,mag sulfates 17.5-3.13-1.6 gram recon soln 177 ml PO DAILY Qty: 354 RF: 0 zaleplon 10 mg capsule 10 mg PO DAILY PRN (Reason: Sleep) RF: 0 albuterol sulfate [Proventil HFA] 90 mcg/actuation HFA aerosol inhaler 2 puff INHALATION Q6H PRN (Reason: asthma) RF: 0 pregabalin [Lyrica] 150 mg capsule 150 mg PO BEDTIME RF: 0 sulfamethoxazole-trimethoprim [Bactrim DS] 800-160 mg tablet 1 tab PO DAILY RF: 0 rabeprazole 20 mg tablet,delayed release (DR/EC) 20 mg PO BID RF: 0 sertraline [Zoloft] 100 mg tablet 150 mg PO DAILY RF: 0 levothyroxine 75 mcg capsule 75 mcg PO DAILY RF: 0 Flovent HFA 110 mcg/actuation HFA aerosol inhaler 2 puff INHALATION BID RF: 0 celecoxib [Celebrex] 200 mg capsule 200 mg PO BID RF: 0 niacin 100 mg tablet 100 mg PO BEDTIME RF: 0 Zyrtec 10 mg capsule 10 mg PO DAILY RF: 0 multivitamin [Multiple Vitamins] Tablet 1 tab PO DAILY RF: 0 calcium citrate 250 mg calcium tablet 600 mg PO DAILY RF: 0 aloe vera 25 mg capsule 25 mg PO DAILY RF: 0 Senior Probiotic 15 billion cell capsule 15,000 mmu cells PO DAILY RF: 0 cranberry 500 mg capsule 500 mg PO DAILY RF: 0 Fish Oil 300-500 mg capsule 1 cap PO DAILY RF: 0 lysine 1,000 mg tablet 1,000 mg PO DAILY RF: 0 Referrals: Amada Marmolejo MD [Primary Care Provider] -
[2019-08-25 12:14] LABS: PTT Partial Thromboplastin Tim 38 SECONDS (26.4-36.2)
[2019-08-25] MEDS: SODIUM CHLORIDE 0.9% 1,000 ML 150 ML IV (12:41)
--- NOTE | 2019-08-25 13:07 | DI.CT.S_ITS ---
PROCEDURE: CT ANGIO HEAD AND NECK INDICATIONS: blurry vision episode, dec strength right hand TECHNIQUE: Pre-contrast 4.5 mm thick sections acquired from the foramen magnum to the vertex. After the administration of intravenous contrast, 1 mm thick sections acquired from the aortic arch through the [place]. Post-contrast 4.5 mm thick sections then re-acquired from the foramen magnum to the vertex. 3-dimensional jkgennm-wifcvabmz-mhqnnwzsly (MIP) and/or volume rendering reformats were acquired of the central intracranial vasculature and neck separately. COMPARISON: [facility], CT, CT HEAD/BRAIN WO CON, 08/25/2019, 11:49. FINDINGS: Image quality: Excellent. BRAIN: CSF spaces: Ventricles are normal in size and shape. Basal cisterns are patent. No extra-axial fluid collections. Brain: No midline shift. No intracranial bleeds or masses. Garber-white matter interface appears intact. Skull and face: Calvarium and facial bones appear intact, without suspicious lesions. Orbits appear normal. Sinuses: Sinuses and mastoids are clear. HEAD CT ANGIOGRAPHY: Anterior circulation: Intracranial internal carotid arteries are normal in flow. Atherosclerotic calcification noted in the cavernous segment of the right internal carotid artery which causes mild, short segment stenosis. The flow within the paired anterior cerebral arteries is normal and symmetric. The flow within the middle cerebral arteries is normal and symmetric. The anterior communicating artery is seen. No aneurysms are seen. Posterior circulation: Visualized portions of the vertebral arteries demonstrate normal caliber, and join to form a normal appearing basilar artery. Flow within the posterior cerebral arteries is normal and symmetric. No aneurysms are seen. The dural sinuses demonstrate normal postcontrast enhancement. NECK CT ANGIOGRAPHY: Carotid system: The great vessels demonstrate a conventional anatomy as they arise from the aortic arch. The origins of the common carotid arteries appear patent. The common carotid arteries demonstrate normal caliber and courses. Atherosclerotic calcifications noted in the origins of the internal carotid arteries this causes less than 50% stenosis of the vessels. Posterior circulation: The origins of the vertebral arteries both appear widely patent. The more superior extracranial portions of both vertebral arteries also demonstrate normal courses and calibers. They join to form a normal appearing basilar artery. Soft tissues: Visualized neck soft tissues demonstrate no suspicious abnormalities. Bones: No suspicious bony lesions. Spine degenerative disc disease and facet arthropathy.Visualized cervical spine appears normally aligned. IMPRESSION: 1. No acute intracranial disease process. 2. No large vessel occlusion, hemodynamically significant stenosis, vascular dissection or aneurysm. Any quantitative measurements of stenosis were performed using NASCET criteria. Dictated by: Brandi Gonzales MD, PhD on 08/25/2019 at 14:16 Approved by: Brandi Gonzales MD, PhD on 08/25/2019 at 14:25
== END 2019-08-25 15:57 | disposition home or self-care (01) ==
PROVIDERS: Emergency Provider Nurse Practitioner Family; PCP Internal Medicine
DX: R53.1 Weakness (principal); H53.8 Other visual disturbances; R29.818 Other symptoms and signs involving the nervous system
CPT/HCPCS: 36415; 70450; 70496; 70498; 72125; 80053; 80320; 81003; 82962; 85025; 85610; 85730; 93005; 96360; 96361; 99284; 99285; Q9967

== ENCOUNTER → 2021-06-15 14:49 | Outpatient (CLI) | payer MEDICARE, OTHER, SELFPAY ==
--- NOTE | 2021-06-15 14:52 | DI.CT.S_ITS ---
PROCEDURE: CT LUMBAR SPINE WO CON INDICATIONS: Spinal stenosis, lumbosacral region TECHNIQUE: Noncontrast 3 mm thick sections acquired from the T12 level to the sacrum. Sagittal and coronal reformats were constructed. For radiation dose reduction, the following was used: automated exposure control. COMPARISON: [facility], MR, MR LUMBAR SPINE WITHOUT CONTRAST, 09/20/2020, 13:43. FINDINGS: Image quality: Excellent. Bones: There is trace retrolisthesis L4 on L5 is present. No visualized fractures or dislocations. No suspicious osseous lesions. No pars defects. Multilevel severe disc space narrowing is present with vacuum disc present L2-3, L3-4 and L4-5, moderate disc space narrowing at L1-L2. Sclerotic reactive endplate changes are present most prominent at L2-3 and to a lesser degree L3-4. Areas of cystic change are noted at the endplates most severe along the inferior endplate of L2 and L3. Small anterior non bridging osteophytes are present. Mild disc bulges are present at L1-L2, L2-3, L3-4, L4-5 and L5-S1 with small left posterior lateral protrusion at L2-3. Appearances are unchanged. Mild spinal stenosis is present at L2-3, moderate to severe L3-4, severe L4-5, mild L5-S1, relatively stable compared to prior exam. Multilevel epidural lipomatosis is present. There is mild bilateral foraminal narrowing L1-L2, mild right and moderate left L2-3, L3-4, moderate right and mild left L4-5 and mild bilateral L5-S1, stable. Multilevel facet hypertrophy is present. Soft tissues: No retroperitoneal masses or hematomas. Visualized aorta is normal in caliber. IMPRESSION: Multilevel degenerative changes, stable compared to prior exam. Multilevel spinal stenosis most severe at L4-5 secondary to disc bulge with contributing effect of/ligamentum flavum arthropathy. Dictated by: Ese Chavez M.D. on 06/15/2021 at 17:07 Approved by: Ese Chavez M.D. on 06/15/2021 at 17:13
== END ==
PROVIDERS: PCP Internal Medicine; Referring Provider Orthopaedic Surgery Orthopaedic Surgery of the Spine; Visit Provider Orthopaedic Surgery Orthopaedic Surgery of the Spine
DX: M48.07 Spinal stenosis, lumbosacral region (principal); M48.061 Spinal stenosis, lumbar region without neurogenic claudication; M47.816 Spondylosis without myelopathy or radiculopathy, lumbar region; M51.26 Other intervertebral disc displacement, lumbar region
CPT/HCPCS: 72131

== ENCOUNTER → 2021-07-17 12:46 | Outpatient (CLI) | payer MEDICARE, OTHER, SELFPAY ==
[2021-07-17 14:35] LABS: Add Manual Diff / Slide Review NO; Basophils Absolute Auto 100 /uL (0-100); Basophils Percent Auto 0.9 % (0-2); Eosinophils Absolute Auto 100 /uL (0-450); Eosinophils Percent Auto 0.9 % (2-4); Hemoglobin 13.3 g/dL (12.0-16.0); Lymphocytes Absolute Auto 1700 /uL (1100-4500); Lymphocytes Percent Auto 15.9 % (25-40); Mean Corpuscular HGB Conc 33.3 % (30-36); Mean Corpuscular Hemoglobin 29.3 PG (26-34); Monocytes Absolute Auto 800 /uL (0-900); Monocytes Percent Auto 7.4 % (3-14); Neutrophils Absolute Auto 8100 /uL (1500-7000); Neutrophils Percent Auto 74.9 % (50-75); Platelet Count 239 X10^3/uL (150-400); Red Blood Cell Count 4.55 X10^6/uL (4.0-5.2); White Blood Cell Count 10.9 X10^3/uL (4.5-11.0)
[2021-07-17 14:57] LABS: Hemoglobin A1C% w Est Avg Glu 5.5 % (4.0-6.0)
[2021-07-17 14:58] LABS: BUN Creatinine Ratio 29.6 (6-22); Blood Urea Nitrogen 21 mg/dL (7-17); Calcium 8.9 mg/dL (8.4-10.2); Carbon Dioxide 27 mmol/L (22-32); Chloride 104 mmol/L (98-107); Estimated Glomerular Filt Rate > 60 mL/min (>60); Glucose 97 mg/dL (80-110); HEMOLYSIS < 15 (0-50); Potassium 4.6 mmol/L (3.4-5.1); Sodium 140 mmol/L (137-145)
== END ==
PROVIDERS: PCP Internal Medicine; Referring Provider Orthopaedic Surgery Orthopaedic Surgery of the Spine; Visit Provider Orthopaedic Surgery Orthopaedic Surgery of the Spine
DX: Z01.818 Encounter for other preprocedural examination (principal); R73.9 Hyperglycemia, unspecified; Z01.812 Encounter for preprocedural laboratory examination
CPT/HCPCS: 36415; 80048; 83036; 85025; 93005

== ENCOUNTER → 2021-07-27 12:21 | Outpatient (CLI) | payer MEDICARE, OTHER, SELFPAY ==
[2021-07-27 13:22] LABS: COVID19 -Nasal RAPID Negative (Negative)
== END ==
PROVIDERS: PCP Internal Medicine; Visit Provider Family Medicine Sleep Medicine
DX: Z20.822 Contact with and (suspected) exposure to COVID-19 (principal)
CPT/HCPCS: 87635; C9803

== ENCOUNTER 2021-07-31 10:49 | Inpatient (IN) | payer MEDICARE, OTHER, SELFPAY ==
[2021-07-25 13:52] VITALS: BMI 30.7
[2021-07-30] VITALS (20 sets, daily range): BP systolic 97–144; BP diastolic 52–81; PULSE 65–113; RESP 10–95; TEMP 36.3–36.9; O2SAT 10–100; BMI 30.7
[2021-07-30] MEDS: ACETAMINOPHEN 325 MG TABLET 975 MG PO (07:08)
[2021-07-30] MEDS: LACTATED RINGERS 1,000 ML 42 ML IV ×2 (07:11→09:22)
--- NOTE | 2021-07-30 07:49 | PM.PREOP ---
Pre-operative Note COVID-19 COVID-19 status: Negative Result date/Date tested (Pos, Neg/Pending): 07/29/21 Criteria for continued procedure: Expected advancement of disease process, Possibility delay results in more complex future surgery or treatment, Increased loss of function, Continuing or worsening of significant or severe pain, Deterioration of the patient's condition or overall health and Delay expected to result in less-positive ultimate med/surg outcome Interval Note History & Physical reviewed/Exam performed by Physician: Yes Changes to H&P: No
[2021-07-30] MEDS: CEFAZOLIN 2 GM/20 ML SYRINGE IV ×2 (07:59→16:35)
--- NOTE | 2021-07-30 08:26 | SUR.OPER ---
Prone on spine table, head in foam head support, padded chest and pelvic supports, gel pad at knees, lower legs supported by pillows; nipples, genitalia and toes free of pressure, arms secured on foam padded arm boards at <90 degrees abduction. Tape over blanket at thigh secured to table.
[2021-07-30] MEDS: BUPIVACAINE 0.25% (PF) 30 ML, EPINEPHrine 0.3 MG INJ (08:34)
[2021-07-30] MEDS: BUPIVACAINE LIPOSOME 266 MG/20 ML VIAL INJ (11:30)
--- NOTE | 2021-07-30 11:58 | P.OP_ITS ---
Operative Date/Time/Diagnoses Date of procedure: 07/30/21 Time of procedure: 07:45 Pre-op diagnosis: 1. L3-4, L4-5 spinal stenosis with radiculopathy 2. Lumbar scoliosis Post-op diagnosis: same Procedure & Clinicians Procedure: 1. L3-4, L4-5 Postero-lateral and posterior interbody fusion 2. L3-4, L4-5 interbody cage placement. 3. L3-4, L4-5 decompressive laminectomy with bilateral facetecomies 4. L3-4, L4-5 Posterior segmental instrumentation 5. [place] of bone marrow from iliac crest 6. Utilization of microsurgical technique and operating microscope 7. Utilization of robotic navigation surgery Same procedure as scheduled: Yes Indications: Patient has been having chronic back pain and worsening lumbar radiculopathy. Patient had significant lumbar scoliosis with severe central and foraminal stenosis causing her radiculopathy and symptoms of neurogenic claudication. Patient failed multiple conservative management with worsening pain weakness and numbness in her lower extremity. Patient has been having difficulty performing activity of daily living. After discussing risks benefits of treatment options, patient elected proceed with surgery. Surgeon: Jj Vaughn Healthcare Technician: Brenda Holloway Click Yes if Unassisted: No Anesthesia Type: General Operative Notes Closure Type: primary Specimen(s): none sent Prosthetic devices, grafts, tissues, transplants, or devices: Globus CREO MIS screws, Rise cages Applied: catheter Estimated Blood Loss (mL): 150 Blood products transfused: none Procedure in detail: Patient was seen in the preoperative area. Risks and benefits of the surgery was discussed with the patient. Informed consent was obtained from the patient and placed in the chart. Surgical site was marked. Patient was taken to the operative room. General anesthesia was administered. Prophylactic antibiotic was given to the patient less than 30 min before the incision was made. Patient was placed into a prone position on the [place] table. Patient's back was then prepped and draped in the sterile fashion. Time-out was performed at this time. After patient was prepped and draped, patient's PSIS was palpated and marked bilaterally. Small 1 cm incision was made over the PSIS for placement of the reference probes. Two trocar was placed into the PSIS 1 on each side. The reference probe was attached to the trocar of the reference apparatus. At this time the C-arm imaging was used to confirm AP and lateral of L3, L4-L5 vertebrae and merged the C-arm imaging using the [employer] robotic navigation system with the CT of the lumbar spine. After successful merging was completed and confirmed, skin marker was used to alicia out the skin incision using the [employer] robotic arm. Bilateral incision was made at this time. Pre templated trajectory was used and guided using the [employer] robotic navigation system for bilateral L3 L4, L5 pedicle screw placement. This was done by using the robotic arm to guide the high-speed bur to make a cortical entry point. Next a drill was placed also using the robotic arm and guided using the navigation system drilling partially through bilateral L3, L4, L5 pedicles. Next L3, L4, L5 pedicle screws it was pre templated and measured was placed onto the power feedmobile driver and inserted into the pedicles bilaterally. After all 6 screws were placed C-arm imaging was taken of both AP and lateral to confirm the placement. Excellent placement of the screws were confirmed and a matched precisely with the pre planned screw placement using the navigation system. MARs retractor was inserted using [employer] guidence. Globus MARS re tractors was placed inside the incision and docked onto the L3, L4 lamina. Using microsurgical technique and operating microscope, a L3, L4 laminectomy and L3-4, L4-5 facetectomy was performed using a [place] rongeur. Patient was found have severe lateral recess and neural foramen stenosis which was fully decompressed after the laminectomy facetectomy. More than 75% of the facets were removed during the process of decompression rendering L3-4, L4-5 level grossly unstable and required a fusion procedure at the same time. The disc space at L3-4, L4-5 was identified, and a total diskectomy was performed at L3- 4, L4-5 level. The endplates were decorticated using a rasp and shaver. The total diskectomy and decortication was performed at L3-4, L4-5 level in order to to accomplish a L3-4, L4-5 fusion. The local bone from the laminectomy and facetectomy was saved for local bone grafting. After the total diskectomy and decortication was completed, Trifecta bone graft material was combined with local bone that was harvested earlier. At this time, a separate skin is incision was made over the iliac crest. A Jamshidi needle was inserted into the iliac crest through a separate skin incision. 5 cc of bone marrow aspiration was obtained through the separate skin incision using a Jamshidi needle from the iliac crest. The bone marrow aspiration was combined with local bone and the Trifecta bone grafting material. The bone grafting material was placed into the L3-4, L4-5 interbody space along with expandable cages. One cage each was inserted into the L3-4 L4-5 interbody space along with bone graft material. The cage was expanded to its maximum height using the torque limiting screwdriver. The disc preparation as well as the cage insertion were also performed under navigation guidance. After the cage was placed, AP and lateral C-arm imaging was taken to confirm placement of the cage and excellent position was confirmed. Globus MARS retractor was inserted and docked onto the L3-4, L4-5 posterolateral gutter on the right side. Using the power drill, posterior-lateral decortication was performed at L3-4, L4-5 level until bleeding cortical bone was identified. The remaining bone grafting material was placed into the L3-4, L4-5 posterior lateral gutter he order to accomplish posterolateral fusion at the L3- 4, L4-5 level. At this time the t[place]ips were attached to the L3, L4-L5 pedicle screw shanks. After measuring the length of the rods, they were inserted into the [place] of the pedicle screws and locked in place using locking caps and torque limiting screwdriver bilaterally. Total 6 caps and 2 titanium rods was used in order to complete the posterior instrumentation construct. After all the hardware was placed, and confirmed with AP and lateral C-arm imaging, the wound was then irrigated with sterile normal saline and packed with Ray-Rolf gauze for 3 min to accomplish hemostasis. After the gauze was removed the deep fascia was closed with #1 Vicryl suture. The subcutaneous layer was closed with 2-0 Vicryl. The skin was closed with skin allyson. Patient tolerated the procedure well. There were no complications. Neuro monitoring system was used to monitor patient's neurologic status throughout entire procedure. There was no disturbance of the neural monitoring signals throughout the case. Complications: none Post-operative Condition: stable Disposition: PACU Plan for aftercare: Admit to inpatient hospital
--- NOTE | 2021-07-30 12:01 | DI.RAD.S_ITS ---
PROCEDURE: XR LUMBAR SPINE 2-3V INDICATIONS: L3-4, L4-5 TLIF TECHNIQUE: 2 intraoperative views of the lumbar spine were acquired. COMPARISON: None. FINDINGS: 2 intraoperative fluoroscopic images of lumbar spine shows posterior fusion at L3 through L5 levels with anatomic alignment. IMPRESSION: Fluoro guidance was provided intraoperatively for posterior fusion at L3 through L5 levels. Dictated by: Ervin Brown M.D. on 07/30/2021 at 13:04 Approved by: Ervin Brown M.D. on 07/30/2021 at 13:04
[2021-07-30] MEDS: fentaNYL 100 MCG/2 ML INJ IV ×2 (12:18→12:23)
[2021-07-30] MEDS: OXYCODONE IR 5 MG TABLET PO ×4 (12:50→20:45)
--- NOTE | 2021-07-30 14:13 | SUR.PHASEI ---
Pt transferred to 205 in bed by this Rn with black personal bag, cane and white belongings bag. Pt awake, alert, on room air, tolerating pain. SBAR report to Rodriguez AMOR with update at bedside. Incision evaluated, pt with moderate amt of shadow drainage to right side dressing, unchanged from PACU assessment. Ice applied. Pt with call light in reach, SCD on. notified.
[2021-07-30] MEDS: SODIUM CHLORIDE 0.9% 1,000 ML 100 ML IV (14:30)
[2021-07-30] MEDS: ACETAMINOPHEN 325 MG TABLET 650 MG PO (17:33)
[2021-07-30] MEDS: hydrOXYzine pamoate 25 MG CAPSULE PO (17:34)
[2021-07-30] MEDS: PREGABALIN 75 MG CAPSULE 150 MG PO (20:45)
[2021-07-30] MEDS: BUDESONIDE 0.5 MG/2 ML NEB INH (20:46)
[2021-07-30] MEDS: DOCUSATE 100 MG CAPSULE PO (20:46)
[2021-07-30] MEDS: SENNOSIDES 8.6 MG TABLET 17.2 MG PO (20:46)
[2021-07-30] MEDS: PANTOPRAZOLE DR 20 MG TABLET PO (20:59)
[2021-07-30] MEDS: TRIMETH/SULFA 160/800 (DS) TABLET 0.5 TAB PO (21:00)
[2021-07-31] VITALS (7 sets, daily range): BP systolic 101–143; BP diastolic 43–71; PULSE 60–98; RESP 16–20; TEMP 36.4–36.9; O2SAT 91–100
[2021-07-31] MEDS: hydrOXYzine pamoate 25 MG CAPSULE PO ×2 (02:48→08:15)
[2021-07-31] MEDS: OXYCODONE IR 5 MG TABLET PO (02:48)
[2021-07-31] MEDS: CEFAZOLIN 2 GM/20 ML SYRINGE IV ×2 (02:49→03:17)
[2021-07-31] MEDS: SODIUM CHLORIDE 0.9% 1,000 ML 100 ML IV ×2 (03:17→15:26)
[2021-07-31 05:20] LABS: Hematocrit 29.6 % (36-46)
[2021-07-31] MEDS: LEVOTHYROXINE 75 MCG TABLET PO (06:45)
--- NOTE | 2021-07-31 07:52 | PM.PNPO.1 ---
Subjective Subjective Date Patient Seen: 07/31/21 Time Patient Seen: 07:52 Interval history: Lying in bed on her left side in position. 'I hurt all the way from my belly button to my ankles.' Complains of back and bilateral leg pain. Has not been OOB yet. [place] catheter in place. Tolerating PO w/o N/V. Exam Vital Signs (past 8 hours): - 07/30/21 23:59 07/31/21 04:00 Temperature 97.9 F 97.9 F Pulse Rate 71 76 Respiratory Rate 18 18 Blood Pressure 101/57 L 104/50 L Pulse Oximetry 97 100 Oxygen Delivery Method Room Air Oxygen Flow Rate 0 Narrative Exam Narrative: Exam limited by pain, but 5/5 DF, PF, EHL. Sensation to light touch intact throughout BLE. Calves soft, compressible, nontender and without palpable cords or masses. Original intraop dressing saturated with blood; reinforced with ABD pad, which is clean. Objective Labs Result Diagrams: 07/31/21 04:25 Labs: Laboratory Results - last 24 hr 07/31/21 04:25 Hgb 10.0 L Hct 29.6 L PFSH Medical History (Updated 07/31/21 @ 07:55 by Brenda Holloway PA-C) Achilles tendon injury Acid reflux Adhesion of intestine Arthritis Asthma DJD (degenerative joint disease) Epileptic seizure Fibromyalgia H/O benign breast biopsy History of UTI Low back pain Nephritis Numbness of both lower extremities Other secondary scoliosis, lumbar region Reflex neurogenic bladder Renal failure, unspecified Scoliosis Spinal stenosis Spinal stenosis, lumbar region with neurogenic claudication Spondylolisthesis of lumbar region Thyroid disease Tortuous colon Weakness of both lower extremities Surgical History (Updated 07/31/21 @ 07:55 by Brenda Holloway PA-C) History of Achilles tendon repair History of angioplasty History of bilateral tubal ligation History of knee replacement History of laparoscopy History of tonsillectomy History of tubal ligation Hx of breast biopsy Social History household members: spouse Smoking Status: Never smoker alcohol intake: current Assessment & Plan Post-op Assessment and plan (1) S/P lumbar fusion: Assessment and Plan narrative: Will increase oxycodone to 10 mg q 3 hours. PT today. Will leave [place] in today and d/c tomorrow. SCDs for VTE prophylaxis. Her plan is to d/c home with , but based on today's visit I suspect she may need HH if not SNF. (2) Acute postoperative anemia due to expected blood loss: Assessment and Plan narrative: No intervention needed at this time. Postoperative Procedures: Procedures Operation Date: 07/30/21 07:45 Actual Procedure Side Surgeon p L3-4, L4-5 transforminal lumbar interbody fusion with posterior instrumentation, robot Jj Vaughn MD Quality VTE Deep Vein Thrombosis/Pulmonary Embolism Present on Admission: No
[2021-07-31] MEDS: SERTRALINE 50 MG TABLET 100 MG PO (08:16)
[2021-07-31] MEDS: CALCIUM CARB/VIT D3 500/200 TABLET 1 EACH PO (08:16)
[2021-07-31] MEDS: PANTOPRAZOLE DR 20 MG TABLET PO ×2 (08:16→21:12)
[2021-07-31] MEDS: LORATADINE 10 MG TABLET PO (08:16)
[2021-07-31] MEDS: MULTIVITAMIN 1 TABLET 1 TAB PO (08:16)
[2021-07-31] MEDS: OXYCODONE IR 10 MG TABLET PO ×4 (08:17→18:54)
[2021-07-31] MEDS: DOCUSATE 100 MG CAPSULE PO ×2 (08:17→21:08)
--- NOTE | 2021-07-31 08:34 | CM.DANOTE ---
Addendum entered by Brandi Muniz R.N. 07/31/21 12:54: It is noted that patient worked with P.T. today, and was max assist, difficulty with weight bearing. Patient does have history of fibramyalgia. P.T. is recommending care home. Confirmed that patient was inpatient as of today, and she has Medicare, so she would be eligible by Friday, 08/03. Met with patient and spouse, Soy, who is at bedside. Patient understands that care home is recommended. Brought in a Medicare Choice List. Patient will review, but her and spouse are hoping for the two closest facilities to their home, between [facility] in [place]. Let her know that this DC Solar System Installer will send referrals to [facility] and [facility] in [place]. She will look over the list as well. Called August at [facility], she is reviewing. Left a message with Kristen at [facility] and faxed her the referral. Completed PASSR today, and Eli will look up vaccination information. Original Note: DCP: Case received, EMR reviewed and met with patient. Introduced self and role. Was able to obtain information regarding patient's baseline activity status prior to surgery. DCP assessment completed with information currently available. Patient is a 70 year old female who admitted yesterday to the care of the orthopedic team. PCP: Dr. Velazquez. Payer: confirmed: Medicare/[employer]. Patient came to the hospital for a surgical procedure. Patient had L3-4, L4-5, postero-lateral and posterior interbody fusion. Patient has history of lumbar scoliosis. Met with patient in her room. She was laying on her side in bed, some discomfort. She is alert and oriented. Patient resides in [place] with spouse, Soy. At her baseline, she indicated that she is independent with no DME. Asked her if would be able to assist her when she goes home, and patient indicated, he should be able to. Patient has not yet been up with P.T. P: DCP to continue to follow closely, and will see how she does with P.T. Brandi Muniz RN/Grails Web Application Developer Discharge Planning/Care Management CM Discharge Assessment Start: 07/31/21 08:31 Freq: Status: Active Protocol: Document 07/31/21 08:31 (Rec: 07/31/21 08:34 [id number]) Discharge Planning Assessment Assigned Electronic Maintenance Supervisor Brandi Muniz, RN/Grails Web Application Developer Advance Directives? Yes Advance Directives on File No History Provided By Patient,Medical Record Prior Living Arrangements House Household Members spouse Type of transporation used prior to Drives own vehicle admit Independent with ADL's Yes Is patient alert and oriented? Yes Caregiver for Another No Barriers to Discharge No Comment Has supportive , will see how she does with P.T. Discharge Plan Home Transportation Arrangement Spouse Referrals Initiated None needed Additional Comment Depending upon how she does with P.T. Whiteboard Updated in Patient Room with Yes name and ext. # of Electronic Maintenance Supervisor Review Status In Process Next Review Type Continued Stay Review Pre-Anesthesia Assessment Start: 07/25/21 13:52 Freq: Status: Active Protocol: Document 07/25/21 13:52 [facility] (Rec: 07/25/21 14:14 [facility] [id number]) Pre-Anesthesia Assessment Patient Information Reviewed Via Chart Review,Phone Assessment Assessment Completed With Patient Diagnostic Results BMP/CMP,CBC,EKG,Other Comment A1c Primary Care Provider Harpal Velazquez Seen Specialist in Last 12 Months Yes Specialist Seen Opthamologist/Manufacturing Controls Engineer, Orthopedist,Other Comment Neurologist Dr. Bustamante, Drs. Aceves and Johana, Dr. Bae, rheumatology, Preferred Language Bengali Chair And Couch Maker Required No Height 5 ft 4 in Weight 179 lb Body Mass Index (BMI) 30.7 Hearing Ability Hard of Hearing,Use of Hearing Aid Visual Impairment Severely Limited Visual Assist Glasses Dentition Type Teeth, Natural Present,Teeth, Missing Barriers to Learning Auditory,Visual Hx Anesthesia Reactions Yes: Epi - diff breathing; daughter woke during procedure , N&V Hx Family Anesthesia Reaction No Hx Malignant Hyperthermia No Hx Blood Transfusions No: as a child Hx Blood Transfusion Reaction No Anesthesia Review Requested Yes: Surgeon - abn EKG Sales Planning Manager No alcohol intake current alcohol intake frequency 0-2 drinks per day Smoking Status Never smoker Substance Use Type does not use Pain Present Pain Reported Comment Low Back, left leg Musculoskeletal Symptoms Abnormal Gait,Back Pain, Difficulty Walking,Joint Pain, Joint Stiffness,Joint Swelling ,Limited Range of Motion, Muscle Spasms,Numbness, Radiating Pain into Limb, Tremors History of Falling (Recent or History of Yes ) Comment L foot 'taps', R hand 'taps' Patient is completely paralyzed or No completely immobile Ambulatory Aid Crutches/cane/walker Prosthesis or Orthotic Device Cane Gait/Transferring Impaired Mental Status Oriented to own ability Comment Cane use PRN, catherine on stairs Is patient on oxygen? No Does patient have ROGERS/SOB No Hx Sleep Apnea No CPAP/BIPAP use not prescribed Currently Taking a Beta Harry No Can You Climb a Flight of Stairs Without No SOB Hx Chest Pain No Hx SOB Yes: In smokey conditions or asthma attack Hx Syncope or Dizziness Yes Anti-Coagulant Therapy No Has a Sash Finisher No Cardiac Testing Yes: Echo, states that it was normal Hx Pacemaker/ICD No Pacemaker Rep Required? No Cardiac Clearance Received Not Applicable Diet Type At Home Regular dysphagia No Gastrointestinal Symptoms Constipation,Reflux Bladder Pattern Nocturia Urinary Catheter Present No Hx Urinary Self Catheterization No Diabetes No HgbA1C 5.5 Date 07/17/21 Patient No Lactating No Hx Drug Resistant Organism No Presence of External or Internal Medical No Devices Have you had any close contact with No someone diagnosed with COVID-19? Are you experiencing any of these No symptoms symptoms? Evaluation/Screening for possible COVID- Yes 19 infection completed? Received a COVID vaccine? Yes Received all doses? Yes Marital Status Lives With spouse Prior Living Arrangements House Number of Floors (Floors) One Floor Number of Stairs To Enter/Railing? 1 step to living room, 1-2 steps into the house Support System Spouse Does the Patient Have Assistance After Yes Surgery Patient Discharge Plan Description Return Home Feels Safe in Current Environment Yes Been Physically Hurt or Threatened By a No Person in Current Environment Do you have thoughts of harming yourself None or others? Are you currently considering suicide? No Do you have a plan to hurt yourself or No Plan others? Comment States that her medication is helping and that she is safe, concerned re OR Do You Have Any Spiritual Beliefs That Yes May Affect Your HC Choices? Do You Have Any Cultural Practices That No May Affect Your HC Choices? Spiritual Referral Yazidi clergy/Lay associate research scientist visit Who Can We Speak to About Patient's Care Family & Friends Identifying Code for Release of Patient Declined Information Health Care Proxy/Next of Kin Soy Peters Health Care Proxy Emergency Contact Name Soy Peters Emergency Contact Advance Directives? Yes Requested Patient Bring Advanced Yes Directives DOS Power of Transmitter Engineer Yes Power of Transmitter Engineer Name , daughter Soy Lindsey Power of Transmitter Engineer PAC Instructions Assistance for 24 hours post- op,Do not shave/clip surgical site,Durable medical equipment ,Medications to take/avoid, Nasal antibiotic,No ETOH/ petroleum product on skin DOS, NPO,Post-op transportation,Pre -op antibiotic,Pre-surgical wash,Sensory aids,Sturdy shoes /comfortable clothes,Do not bring valuables and remove jewelry
--- NOTE | 2021-07-31 09:30 | PT.IIE ---
Current Diagnoses Acute posthemorrhagic anemia (07/31/21) Spondylolisthesis, lumbar region (07/31/21) Spinal stenosis, lumbar region with neurogenic claudication (07/31/21) Arthrodesis status (07/31/21) Surgery Performed Operation Date: 07/30/21 07:45 Actual Procedures p L3-4, L4-5 transforminal lumbar interbody fusion with posterior instrumentation, robot - Jj Vaughn MD Medical History (Last Updated 07/25/21 @ 15:05 by Heidi Damon RN) Achilles tendon injury Acid reflux Adhesion of intestine Arthritis Asthma DJD (degenerative joint disease) Epileptic seizure Fibromyalgia H/O benign breast biopsy History of UTI Low back pain Nephritis Numbness of both lower extremities Other secondary scoliosis, lumbar region Reflex neurogenic bladder Renal failure, unspecified Scoliosis Spinal stenosis Spinal stenosis, lumbar region with neurogenic claudication Spondylolisthesis of lumbar region Thyroid disease Tortuous colon Weakness of both lower extremities Physical Therapy Inpatient Evaluation/Re-Eval M1 PT/OT-IP Prior Functional Status Start: 07/31/21 11:05 Freq: NEEDED Status: Active Protocol: Document 07/31/21 09:30 AB (Rec: 07/31/21 11:17 AB [id number]) Medical Review Prior Functional Status Medical History Reviewed Yes Communication able to make needs known Mobility and Gait pt stated that she is modified independent with all mobilities and ambulation without indoors but uses a SPC for outdoor mobility; pt has h/o falls; stated that she has chronic pain issues/ fibromyalgia and joint issues since she was young Social History Household Members spouse Living Arrangements House Number of Floors (Floors) One Floor Number of Stairs To Enter/Railing? 2 steps L rail to enter the house 1 step down to laudry level Home Environment High Toilet,Tub/Shower Home Equipment Front Wheel Walker,Straight Cane,Shower Seat without Backrest,Hand Held Shower,Grab Bars Near Toilet,Grab Bars In Shower M2 PT-IP Current Condition Start: 07/31/21 11:05 Freq: NEEDED Status: Active Protocol: Document 07/31/21 09:30 AB (Rec: 07/31/21 11:17 AB [id number]) Physical Therapy Current Condition Current Condition Evaluation Date 07/31/21 Treatment Diagnosis s/p L3-4, 4-5 TLIF; difficulty in walking Onset Date 07/30/21 M3 PT-IP Subjective Start: 07/31/21 11:05 Freq: NEEDED Status: Active Protocol: Document 07/31/21 09:30 AB (Rec: 07/31/21 11:17 [id number]) Subjective Physical Therapy Visit Type Type Initial Evaluation Visit Start Time 09:30 Visit Stop Time 10:30 Total Visit Minutes 60 Number of CODING VALIDATOR Visits 0 Physical Therapy Visit Comments Patient Comments agreeable to do PT; c/o iincrease pain Therapy Pain Assessment Pain When Pain Assessed At Rest Pain Present Pain Present Pain Reported Location back Intensity 8 Scale Used increases with mobility Pain Behaviors Facial Grimacing,Guarding, Wincing Pain Management Techniques Apply Cold,Distraction, Modification of Treatment,Re- positioning,Timing of Activity with Medications M4 PT-IP Mobility and Gait Start: 07/31/21 11:05 Freq: NEEDED Status: Active Protocol: Document 07/31/21 09:30 AB (Rec: 07/31/21 11:17 [id number]) PT-Bed Mobility Assessment Rolling Type of Rolling Log Rolling Level of Assist Maximal Assistance Supine to Sit Supine to Sit Maximum Assistance,1 Person Assistance Scooting Scooting to Edge of Bed Maximum Assistance PT-Transfer Assessment Sit to and From Stand Sit to and from Stand Maximum Assistance,Total Assistance,2 Person Assistance ,Use of Upper Extremities Equipment Transfer Assistive Device Gait Belt,Front Wheeled Walker Orthotic/Prosthetic Devices or Brace: No Transfers Transfer Destination Chair Transfer Technique Squat Pivot Transfer Ability Level of Assist Maximum Assistance,2 Person Assistance,Use of Upper Extremities Comments Mobility Comments educated pt on back precautions and log roll bed mobility. c/o increase back pain. BP in supine 100/49. completed log roll bed mobility max A and max cues. able to sit on EOB CGA and cues for positioning. BP checked: 107/36. pt able to tolerate sitting without c/o dizziness/lightheadedness. BP checked again after ~ 2 min: 111/39. Attempted sit to stand x 2 reps requiring max Ax 2 to total A x 2. pt unable to fully stand up despite assistance. completed squat pivot transfer with PT in front and NAC behind pt to assist max A x 2 and max cues. c/o increase back pain. positioned pt on the chair. BP checked: 89/38. ice pack provided. call light and table placed within reach. BP checked again at the end of PT session: 103/49. Nurse informed regarding pt's mobility and BP. Gait Assessment Comments Gait Comments unable at this time PT-Balance Assessment Sitting Balance and Reactions Static Sitting Balance Ability Good Dynamic Sitting Balance Ability Fair Standing Balance and Reactions Static Standing Balance Ability Poor Dynamic Standing Balance Ability Poor Device Used FWW M5 PT-IP Objective Assessments Start: 07/31/21 11:05 Freq: NEEDED Status: Active Protocol: Document 07/31/21 09:30 AB (Rec: 07/31/21 11:17 AB [id number]) Orientation Orientation/Cognition Level of Alertness Alert Orientation Name,Place,Situation Safety Awareness Decreased Safety Awareness Memory Description Short Term Impaired Gross Range of Motion Lower Extremity ROM Assessment Within Functional Limits Strength Lower Extremity Strength Assessment Bilaterally Impaired Comments Strength Comments RLE: 3/5 LLE: 3-/5 Sensation Assessment Sensation Gross Sensation Left LE Impaired Sensation Description Numbness Comments Sensation Comments chronic LLE numbness Muscle Tone Muscle Tone WNL Yes M6 PT-IP Treatment Start: 07/31/21 11:05 Freq: NEEDED Status: Active Protocol: Document 07/31/21 09:30 AB (Rec: 07/31/21 11:17 AB [email or web address]) Physical Therapy Treatment Education Education Provided Precautions,Weight Bearing Status,Post-Op Packet,Safety M7 PT-IP Assessment and Plan Start: 07/31/21 11:05 Freq: NEEDED Status: Active Protocol: Document 07/31/21 09:30 AB (Rec: 07/31/21 11:17 AB [email or web address]) PT Summary Assessment and Plan Potential Rehabilitation Potential Fair Status of Condition at Evaluation Evolving Summary Impairments Pain,ROM,Strength,Balance, Coordination,Sensation,Tone, Cognition,Bed Mobility, Transfers,Gait,Activity Tolerance Assessment Summary pt requiring max A x 2 to total Ax 2 with squat pivot transfer and unable to ambulate at this time. pt with c/o increase pain and has prior weakness issues and pain issues affecting mobility . pt will require SNF rehab at this time. Goals Bed Mobility Goal Minimal Assistance Transfer Goal Minimal Assistance,Front Wheeled Walker Gait Goal Minimal Assistance,Front Wheel Walker Gait Distance 50 Other Goals improve bed mobility and transfer using FWW CGA improve ambulation using FWW CGA ~ 100 ft up/down 2 steps L rail CGA Days to Meet Goals 10 Frequency of Treatment Frequency Of Treatment Twice a Day Treatment Plan Physical Therapy Treatment Plan Bed Mobility Training,Transfer Training,Gait Training, Therapeutic Exercise,Balance Retraining,Post Op Education, Discharge Planning,Hot or Cold Pack,Neuromuscular Re-ed, Coordination Retraining,Manual Therapy Precautions Lumbar Precautions Log Roll,No Twisting,Limit Bending,Lifting Restriction of 10 lbs,Gait Belt above Incisional Area Recommendations To Nursing Amount of Assist Needed Mechanical Lift Discharge Recommendations PT Discharge Recommendations SNF Rehab Transportation Needs at Discharge Wheelchair/Cabulance
[2021-07-31] MEDS: SODIUM CHLORIDE 0.9% 500 ML 1000 ML IV (10:51)
--- NOTE | 2021-07-31 13:00 | PT.IPTN ---
Current Diagnoses Acute posthemorrhagic anemia (07/31/21) Spondylolisthesis, lumbar region (07/31/21) Spinal stenosis, lumbar region with neurogenic claudication (07/31/21) Arthrodesis status (07/31/21) Surgery Performed Operation Date: 07/30/21 07:45 Actual Procedures p L3-4, L4-5 transforminal lumbar interbody fusion with posterior instrumentation, robot - Jj Vaughn MD Physical Therapy Treatment Note M2 PT-IP Current Condition Start: 07/31/21 11:05 Freq: NEEDED Status: Active Protocol: Document 07/31/21 09:30 AB (Rec: 07/31/21 11:17 AB [email or web address]) Physical Therapy Current Condition Current Condition Evaluation Date 07/31/21 Treatment Diagnosis s/p L3-4, 4-5 TLIF; difficulty in walking Onset Date 07/30/21 M3 PT-IP Subjective Start: 07/31/21 11:05 Freq: NEEDED Status: Active Protocol: Document 07/31/21 13:00 AB (Rec: 07/31/21 14:19 AB [email or web address]) Subjective Physical Therapy Visit Type Type Treatment Note Visit Start Time 13:00 Visit Stop Time 13:38 Total Visit Minutes 38 Number of FOURDRINIER MACHINE OPERATOR Visits 0 Physical Therapy Visit Comments Patient Comments agreeable to do PT; requesting to go back to bed Therapy Pain Assessment Pain When Pain Assessed At Rest Pain Present Pain Present Pain Reported Location back Intensity 6 Scale Used increases to 8/10 with movement Pain Behaviors Guarding,Holding Area,Wincing Pain Management Techniques Distraction,Modification of Treatment,Re-positioning, Timing of Activity with Medications M4 PT-IP Mobility and Gait Start: 07/31/21 11:05 Freq: NEEDED Status: Active Protocol: Document 07/31/21 13:00 AB (Rec: 07/31/21 14:19 AB [id number]) PT-Bed Mobility Assessment Rolling Type of Rolling Log Rolling Level of Assist Maximal Assistance Sit to Supine Sit to Supine Maximum Assistance,1 Person Assistance PT-Transfer Assessment Sit to and From Stand Sit to and from Stand Maximum Assistance,2 Person Assistance,Use of Upper Extremities Equipment Transfer Assistive Device Gait Belt,Front Wheeled Walker Orthotic/Prosthetic Devices or Brace: No Transfers Transfer Destination Bed Transfer Technique Stand Step Pivot Transfer Ability Level of Assist Maximum Assistance,2 Person Assistance,Use of Upper Extremities Comments Mobility Comments BP in sittin/51. completed sit to stand from the chair max A x 2 and max cues. max A x 2 for standing balance. completed step transfer to bed using FWW max A x 2 and max cues. pt sat back on EOB. completed sit to stand again max A x 2 and max cues x 2 attempts and took ~ 2 steps towards the HOB max A x 2 and max cues. completed sit to supine max A and max cues. positioned pt in bed. call light and table placed within reach. BP at end of tx session: 131/56 M5 PT-IP Objective Assessments Start: 07/31/21 11:05 Freq: NEEDED Status: Active Protocol: Document 07/31/21 09:30 AB (Rec: 07/31/21 11:17 AB [id number]) Orientation Orientation/Cognition Level of Alertness Alert Orientation Name,Place,Situation Safety Awareness Decreased Safety Awareness Memory Description Short Term Impaired Gross Range of Motion Lower Extremity ROM Assessment Within Functional Limits Strength Lower Extremity Strength Assessment Bilaterally Impaired Comments Strength Comments RLE: 3/5 LLE: 3-/5 Sensation Assessment Sensation Gross Sensation Left LE Impaired Sensation Description Numbness Comments Sensation Comments chronic LLE numbness Muscle Tone Muscle Tone WNL Yes M6 PT-IP Treatment Start: 07/31/21 11:05 Freq: NEEDED Status: Active Protocol: Document 07/31/21 13:00 AB (Rec: 07/31/21 14:19 [email or web address]) Physical Therapy Treatment Education Education Provided Precautions,Safety M7 PT-IP Assessment and Plan Start: 07/31/21 11:05 Freq: NEEDED Status: Active Protocol: Document 07/31/21 13:00 AB (Rec: 07/31/21 14:19 [email or web address]) PT Summary Assessment and Plan Potential Rehabilitation Potential Fair Summary Impairments Pain,ROM,Strength,Balance, Coordination,Sensation,Tone, Cognition,Bed Mobility, Transfers,Gait,Activity Tolerance Progress Towards Goals Slow Progress due to Pain,Slow Progress due to Medical Issues,Slow Progress due to Activity Tolerance Assessment Summary pt continues to require max A x 2 and max cues and unable to tolerate much activity with c /o increase back pain. pt will require SNF rehab to improve strength and mobility. Goals Bed Mobility Goal Minimal Assistance Transfer Goal Minimal Assistance,Front Wheeled Walker Gait Goal Minimal Assistance,Front Wheel Walker Gait Distance 50 Other Goals improve bed mobility and transfer using FWW CGA improve ambulation using FWW CGA ~ 100 ft up/down 2 steps L rail CGA Days to Meet Goals 10 Frequency of Treatment Frequency Of Treatment Twice a Day Treatment Plan Physical Therapy Treatment Plan Bed Mobility Training,Transfer Training,Gait Training, Therapeutic Exercise,Balance Retraining,Post Op Education, Discharge Planning,Hot or Cold Pack,Neuromuscular Re-ed, Coordination Retraining,Manual Therapy Precautions Lumbar Precautions Log Roll,No Twisting,Limit Bending,Lifting Restriction of 10 lbs,Gait Belt above Incisional Area Recommendations To Nursing Amount of Assist Needed Mechanical Lift Discharge Recommendations PT Discharge Recommendations SNF Rehab Transportation Needs at Discharge Wheelchair/Cabulance
--- NOTE | 2021-07-31 15:39 | OT.IPNOTE ---
Attempted to see pt for OT eval, pt in too much pain at this time and requested to be seen tomorrow for OT eval. Able to get prior level of care and history from pt. NO charge.
[2021-07-31] MEDS: PREGABALIN 75 MG CAPSULE 150 MG PO (21:07)
[2021-07-31] MEDS: TRIMETH/SULFA 160/800 (DS) TABLET 0.5 TAB PO (21:08)
[2021-07-31] MEDS: SENNOSIDES 8.6 MG TABLET 17.2 MG PO (21:08)
[2021-08-01 00:18] VITALS: BP 109/40; PULSE 100; RESP 18; TEMP 36.7; O2SAT 95
[2021-08-01 04:01] VITALS: BP 127/69; PULSE 94; RESP 18; TEMP 36.8; O2SAT 95
[2021-08-01] MEDS: PANTOPRAZOLE DR 20 MG TABLET PO (06:16)
[2021-08-01] MEDS: LEVOTHYROXINE 75 MCG TABLET PO (06:16)
--- NOTE | 2021-08-01 08:22 | PM.PNPO.1 ---
Subjective Subjective Date Patient Seen: 08/01/21 Time Patient Seen: 08:22 Interval history: Lying supine in bed. C/o pain in a band-like distribution across her back from hip to hip. Denies leg pain. Pain better today since increase in oxycodone yesterday. Evaluated by PT yesterday, determined that pt will need outpt rehab. Exam Vital Signs (past 8 hours): - 08/01/21 04:01 Temperature 98.2 F Pulse Rate 94 H Respiratory Rate 18 Blood Pressure 127/69 Pulse Oximetry 95 Oxygen Delivery Method Room Air Oxygen Flow Rate 0 Narrative Exam Narrative: 5/5 hip flexors, quadriceps, hamstrings, DF, PF, EHL bilaterally. Sensation to light touch intact throughout BLE. Calves soft, compressible, nontender and without palpable cords or masses. Dressing placed intraoperatively with old bloody drainage. Objective Labs Result Diagrams: 07/31/21 04:25 [facility] Medical History (Updated 08/01/21 @ 11:02 by Brenda Holloway PA-C) Achilles tendon injury Acid reflux Adhesion of intestine Arthritis Asthma DJD (degenerative joint disease) Epileptic seizure Fibromyalgia H/O benign breast biopsy History of UTI Low back pain Nephritis Numbness of both lower extremities Obesity (BMI 30.0-34.9) Other secondary scoliosis, lumbar region Reflex neurogenic bladder Renal failure, unspecified Scoliosis Spinal stenosis Spinal stenosis, lumbar region with neurogenic claudication Spondylolisthesis of lumbar region Thyroid disease Tortuous colon Weakness of both lower extremities Surgical History (Updated 07/31/21 @ 07:55 by Brenda Holloway PA-C) History of Achilles tendon repair History of angioplasty History of bilateral tubal ligation History of knee replacement History of laparoscopy History of tonsillectomy History of tubal ligation Hx of breast biopsy Social History household members: spouse Smoking Status: Never smoker alcohol intake: current Assessment & Plan Post-op Assessment and plan (1) S/P lumbar fusion: Assessment and Plan narrative: Continue PT, oxycodone and hydroxyzine for pain, SCDs for VTE prophylaxis. D/c [place]. Plan for d/c to SNF. (2) Acute postoperative anemia due to expected blood loss: Assessment and Plan narrative: Normotensive, taking adequate PO. IVF d/c'd. (3) Acid reflux: Assessment and Plan narrative: Rabeprazole (4) Obesity (BMI 30.0-34.9): Postoperative Procedures: Procedures Operation Date: 07/30/21 07:45 Actual Procedure Side Surgeon p L3-4, L4-5 transforminal lumbar interbody fusion with posterior instrumentation, robot jJ Vaughn MD Postoperative day: 2 Quality VTE Deep Vein Thrombosis/Pulmonary Embolism Present on Admission: No
[2021-08-01] MEDS: SERTRALINE 50 MG TABLET 100 MG PO (09:11)
[2021-08-01] MEDS: OXYCODONE IR 10 MG TABLET PO ×4 (09:12→21:14)
[2021-08-01] MEDS: CALCIUM CARB/VIT D3 500/200 TABLET 1 EACH PO (09:12)
[2021-08-01] MEDS: MAGNESIUM HYDROXIDE 30 ML UDC PO (09:12)
[2021-08-01] MEDS: MULTIVITAMIN 1 TABLET 1 TAB PO (09:12)
[2021-08-01] MEDS: DOCUSATE 100 MG CAPSULE PO ×2 (09:12→21:14)
[2021-08-01] MEDS: LORATADINE 10 MG TABLET PO (09:12)
[2021-08-01 09:20] VITALS: BP 128/76; PULSE 78; RESP 18; TEMP 36.1; O2SAT 96
[2021-08-01] MEDS: HYDROMORPHONE 0.5 MG INJ 0.2 MG IV (11:01)
--- NOTE | 2021-08-01 11:22 | PT.IPTN ---
Current Diagnoses Acute posthemorrhagic anemia (07/31/21) Obesity, unspecified (07/31/21) Gastro-esophageal reflux disease without esophagitis (07/31/21) Spondylolisthesis, lumbar region (07/31/21) Spinal stenosis, lumbar region with neurogenic claudication (07/31/21) Arthrodesis status (07/31/21) Surgery Performed Operation Date: 07/30/21 07:45 Actual Procedures p L3-4, L4-5 transforminal lumbar interbody fusion with posterior instrumentation, robot - Jj Vaughn MD Physical Therapy Treatment Note M2 PT-IP Current Condition Start: 07/31/21 11:05 Freq: NEEDED Status: Active Protocol: Document 08/01/21 10:49 SP (Rec: 08/01/21 12:48 SP [id number]) Physical Therapy Current Condition Current Condition Evaluation Date 07/31/21 Treatment Diagnosis s/p L3-4, 4-5 TLIF; difficulty in walking Onset Date 07/30/21 M3 PT-IP Subjective Start: 07/31/21 11:05 Freq: NEEDED Status: Active Protocol: Document 08/01/21 10:49 SP (Rec: 08/01/21 12:48 SP [id number]) Subjective Physical Therapy Visit Type Type Treatment Note Visit Start Time 10:49 Visit Stop Time 11:22 Total Visit Minutes 33 Notes CoTx with OT. Vitals taken during tx: supine: BP 141/82 HR 87 seated: BP 151/82 HR 74 in room, attentive throughout tx, observed only giving pt encouragement. Number of ROUGH AND TRUEING MACHINE OPERATOR Visits 1 Physical Therapy Visit Comments Patient Comments Pt agreeable to working with therapy dispite pain 10/10 reported and stated premedicated about little over 1 hr ago. Therapy Pain Assessment Pain When Pain Assessed At Rest Pain Present Pain Present Pain Reported Location back Intensity 10 Scale Used increased with mobility> 10 Description Sharp,Shooting,With Movement Pain Behaviors Calling Out,Facial Grimacing, Guarding,Holding Area, Restlessness,Wincing Pain Management Techniques Distraction,Modification of Treatment,Re-positioning, Timing of Activity with Medications M4 PT-IP Mobility and Gait Start: 07/31/21 11:05 Freq: NEEDED Status: Active Protocol: Document 08/01/21 10:49 SP (Rec: 08/01/21 12:48 SP [id number]) PT-Bed Mobility Assessment Rolling Type of Rolling Log Rolling Level of Assist Maximal Assistance Supine to Sit Supine to Sit Maximum Assistance,2 Person Assistance,Bedrails Scooting Scooting to Edge of Bed Maximum Assistance PT-Transfer Assessment Sit to and From Stand Sit to and from Stand Maximum Assistance,2 Person Assistance,Use of Upper Extremities Equipment Transfer Assistive Device Gait Belt,Front Wheeled Walker Orthotic/Prosthetic Devices or Brace: No Transfers Transfer Destination Chair Transfer Technique Stand Step Pivot Transfer Ability Level of Assist Moderate Assistance,2 Person Assistance,Use of Upper Extremities Comments Mobility Comments BP more elevated and increased pain reports, required Max cuing for breath to help control pain during mobility. ROUGH AND TRUEING MACHINE OPERATOR instructed AP, knee flexion prep LR mobility and ed for spinal stabilization. LR R w/ bed rails Max A w/ transfer pad, R SL>sit Max A x2, scoot Max A x2, Sitting initially support at upper back for stability, STS Max A x2 cues for pushing from bed, stood 20s Heavy BUE on FWW, cued WB into LLE, noted bracing LLE quad fac but able to wt shift no buckling or unsteady noted. Seated rest for tiring recovery/ decreased activity tolerance, was provided dressing change, med management while sitting by nurse and ROUGH AND TRUEING MACHINE OPERATOR noted 3 streak dried blood on top head, OT assisted gentlycleaning, OT/ nurse couldn't see source and no further bleeding noted. STS from EOB Max A x2 to FWW, SPT bed>chair w/ FWW Mod A x2 with Max cues for BLE sequencing and support for FWW positioning. Stand>sit cues for reach back Mod A x2 cues for hip hinge/ knee flexion to maintain back precautions. Scoot back as far as could in large chair. Max A x2 scootback fully, OT provided CP to low back and reclined with leg rests. Pt had call light and all needs in reach before left. ROUGH AND TRUEING MACHINE OPERATOR instructed to perform AP, glut and gentle abdominal sets for strengthening mobility. Gait Assessment Comments Gait Comments stand steps during pivot to chair w/ FWW, Mod Ax2, decreased stance time on LLE with stated LBP into LLE continues as stated prior to surgery. Stair Climbing Assessment Comments Stair Climbing Comments unable to assess due to pain and decrease WB/ strength. Will need to assess 2 + 1 steps for safe DC home when able. PT-Balance Assessment Sitting Balance and Reactions Static Sitting Balance Ability Fair Dynamic Sitting Balance Ability Poor Standing Balance and Reactions Static Standing Balance Ability Poor Dynamic Standing Balance Ability Poor Device Used FWW M5 PT-IP Objective Assessments Start: 07/31/21 11:05 Freq: NEEDED Status: Active Protocol: Document 07/31/21 09:30 AB (Rec: 07/31/21 11:17 AB [id number]) Orientation Orientation/Cognition Level of Alertness Alert Orientation Name,Place,Situation Safety Awareness Decreased Safety Awareness Memory Description Short Term Impaired Gross Range of Motion Lower Extremity ROM Assessment Within Functional Limits Strength Lower Extremity Strength Assessment Bilaterally Impaired Comments Strength Comments RLE: 3/5 LLE: 3-/5 Sensation Assessment Sensation Gross Sensation Left LE Impaired Sensation Description Numbness Comments Sensation Comments chronic LLE numbness Muscle Tone Muscle Tone WNL Yes M6 PT-IP Treatment Start: 07/31/21 11:05 Freq: NEEDED Status: Active Protocol: Document 08/01/21 10:49 SP (Rec: 08/01/21 12:48 SP [id number]) Physical Therapy Treatment Exercises Exercises Ankle Pumps,Gluteal Sets Education Education Provided Precautions,Safety M7 PT-IP Assessment and Plan Start: 07/31/21 11:05 Freq: NEEDED Status: Active Protocol: Document 08/01/21 10:49 SP (Rec: 08/01/21 12:48 SP [id number]) PT Summary Assessment and Plan Potential Rehabilitation Potential Fair Status of Condition at Evaluation Evolving Summary Impairments Pain,ROM,Strength,Balance, Coordination,Sensation,Tone, Cognition,Bed Mobility, Transfers,Gait,Activity Tolerance Progress Towards Goals Slow Progress due to Pain,Slow Progress due to Medical Issues,Slow Progress due to Activity Tolerance Assessment Summary pt continues to require max A x 2 bed mob and sit<>stand w/ FWW, transfer Mod A x2 w/ FWW and max cues breath/ sequencing support for FWW and stability, unable to tolerate much activity with c/o increase back pain with calling out this tx, premedicated. pt will require SNF rehab to improve strength and mobility. Goals Bed Mobility Goal Minimal Assistance Transfer Goal Minimal Assistance,Front Wheeled Walker Gait Goal Minimal Assistance,Front Wheel Walker Gait Distance 50 Other Goals improve bed mobility and transfer using FWW CGA improve ambulation using FWW CGA ~ 100 ft up/down 2 steps L rail CGA Days to Meet Goals 10 Frequency of Treatment Frequency Of Treatment Twice a Day Treatment Plan Physical Therapy Treatment Plan Bed Mobility Training,Transfer Training,Gait Training, Therapeutic Exercise,Balance Retraining,Post Op Education, Discharge Planning,Hot or Cold Pack,Neuromuscular Re-ed, Coordination Retraining,Manual Therapy Other Recommendations and Next Treatment bed mob, LR, transfers, gait Focus when able w/ FWW. Stair before Dc home. Precautions Lumbar Precautions Log Roll,No Twisting,Limit Bending,Lifting Restriction of 10 lbs,Gait Belt above Incisional Area Other Precautions Good recall to 3/3 precautions . Recommendations To Nursing Amount of Assist Needed 2 Person Assist Discharge Recommendations PT Discharge Recommendations SNF Rehab Transportation Needs at Discharge Wheelchair/Cabulance
--- NOTE | 2021-08-01 11:28 | OT.IP.EVAL ---
Current Diagnoses Acute posthemorrhagic anemia (07/31/21) Obesity, unspecified (07/31/21) Gastro-esophageal reflux disease without esophagitis (07/31/21) Spondylolisthesis, lumbar region (07/31/21) Spinal stenosis, lumbar region with neurogenic claudication (07/31/21) Arthrodesis status (07/31/21) Surgery Performed Operation Date: 07/30/21 07:45 Actual Procedures p L3-4, L4-5 transforminal lumbar interbody fusion with posterior instrumentation, robot - Jj Vaughn MD Past Medical History (Last Updated 08/01/21 @ 11:02 by Brenda Holloway PA-C) Achilles tendon injury Acid reflux Adhesion of intestine Arthritis Asthma DJD (degenerative joint disease) Epileptic seizure Fibromyalgia H/O benign breast biopsy History of Achilles tendon repair History of angioplasty History of bilateral tubal ligation History of knee replacement History of laparoscopy History of tonsillectomy History of tubal ligation History of UTI Hx of breast biopsy Low back pain Nephritis Numbness of both lower extremities Obesity (BMI 30.0-34.9) Other secondary scoliosis, lumbar region Reflex neurogenic bladder Renal failure, unspecified Scoliosis Spinal stenosis Spinal stenosis, lumbar region with neurogenic claudication Spondylolisthesis of lumbar region Thyroid disease Tortuous colon Weakness of both lower extremities Surgical History (Last Updated 07/25/21 @ 13:57 by Heidi Damon RN) History of Achilles tendon repair History of angioplasty History of bilateral tubal ligation History of knee replacement History of laparoscopy History of tonsillectomy History of tubal ligation Hx of breast biopsy Occupational Therapy Inpatient Evaluation/Re-Eval M1 PT/OT-IP Prior Functional Status Start: 07/31/21 11:05 Freq: NEEDED Status: Active Protocol: Document 08/01/21 10:50 [facility] (Rec: 08/01/21 12:45 [facility] [id number]) Medical Review Prior Functional Status Medical History Reviewed Yes Communication able to make needs known Mobility and Gait pt stated that she is modified independent with all mobilities and ambulation without indoors but uses a SPC for outdoor mobility; pt has h/o falls; stated that she has chronic pain issues/ fibromyalgia and joint issues since she was young Activities of Daily Living and IADL's Pt states it takes her increased time to do all her needs due to pain. Social History Household Members spouse Living Arrangements House Number of Floors (Floors) One Floor Number of Stairs To Enter/Railing? 2 steps L rail to enter the house 1 step down to laundry level Home Environment High Toilet,Tub/Shower Home Equipment Front Wheel Walker,Straight Cane,Bedside Commode,Shower Seat without Backrest,Hand Held Shower,Grab Bars Near Toilet,Grab Bars In Shower Additional Social History Comment Pt has a bidet M2 OT-IP Current Condition Start: 08/01/21 12:34 Freq: Status: Active Protocol: Document 08/01/21 10:50 [facility] (Rec: 08/01/21 12:45 [facility] [id number]) Occupational Therapy Current Condition Current Condition Evaluation Date 08/01/21 Treatment Diagnosis S/p L3-4, L4-5 TLIF Diagnosis Onset Date 07/30/21 M3 OT- IP Subjective and Pain Start: 08/01/21 12:34 Freq: Status: Active Protocol: Document 08/01/21 10:50 [facility] (Rec: 08/01/21 12:45 [facility] [id number]) OT- Subjective Occupational Therapy Visit Type Type Initial Evaluation Visit Start Time 10:50 Visit Stop Time 11:28 Total Visit Minutes 38 Occupational Therapy Visit Comments Patient Comments Pt's in the room for OT eval and OFFICE INSPECTOR assist for mobility needs as pt needing extensive skilled assist for mobility needs. Patient/Caregiver Goals TO go home. OT Pain Assessment Pain When Pain Assessed At Rest Pain Present Pain Present Pain Reported Location back Intensity 10 Scale Used Numeric (0 - 10) M4 OT- IP ADL's Start: 08/01/21 12:34 Freq: Status: Active Protocol: Document 08/01/21 10:50 [facility] (Rec: 08/01/21 12:45 [facility] [id number]) OT [id number] Comments OT Self-Feeding Comments Not at meal time. OT ADL-Grooming General Evaluation Grooming Ability Independent Areas Needing Assistance Retrieving/Set-up of Grooming Items Comments OT Grooming Comments while seated OT ADL-Oral Care General Eval Oral Care Ability Independent Areas of Assistance Retrieving/Set-Up of Items Comments Oral Care Comments while seated. Spoke of if standing for oral care needs best to spit into a cup to best follow her back precautions. OT ADL-Dressing General Eval Lower Body Dressing Ability Maximum Assistance Areas Needing Assistance Socks OT ADL-Toileting General Evaluation Toileting Ability Total Assistance Comments OT Toileting Comments [place] in place OT ADL-Bathing Comments OT Bathing Comments Sponge bath more appropriate at this time. M5 OT- IP IADL's Start: 08/01/21 12:34 Freq: Status: Active Protocol: Document 08/01/21 10:50 [facility] (Rec: 08/01/21 12:45 [facility] [id number]) OT-Instrumental Activities of Daily Living Home Safety Awareness Awareness of Need for Assistance at Home Good Awareness Ability to Problem Solve Emergency Able to Problem Solve Situations Home Safety Comments Pt has a very supportive to assist with her needs. Glove Finisher Glove Finisher Caregiver Provides Assist M6 OT- IP Functional Cognition Start: 08/01/21 12:34 Freq: Status: Active Protocol: Document 08/01/21 10:50 [facility] (Rec: 08/01/21 12:45 [facility] [id number]) Cognitive Factors Limiting Selfcare Function Cognitive Ability Level of Alertness Alert Patient Orientation Name,Place,Situation Attention Span Ability Capable of Focused Attention, Capable of Sustained Attention Ability to Follow Commands Able to Follow One Step Commands with Increased Time, Able to Follow One Step Commands with Repetition Cognitive Comments Cognitive Assessment Comments Pt able to states all her back precautions. Pt needing encouragement and vc for FWW safety, weight shifting and for hand placement to lower herself down to the recliner. OT- Vision and Hearing OT- Hearing Assessment OT- Hearing Assessment WFL OT- Vision Assessment Visual Acuity Glasses All The Time M7 OT- IP Mobility and Balance Start: 08/01/21 12:34 Freq: Status: Active Protocol: Document 08/01/21 10:50 [facility] (Rec: 08/01/21 12:45 [facility] [id number]) OT- Bed Mobility Assessment Supine to Sit Supine to Sit Assist Maximum Assistance,2 Person Assistance OT-Transfer Assessment Sit to and From Stand Sit to and from Stand Maximum Assistance,2 Person Assistance Transfers Transfer Ability Moderate Assistance,2 Person Assistance Technique Transfer Destination Bed,Chair Transfer Technique Stand Step Pivot Devices Transfer Assistive Devices Gait Belt,Front Wheeled Walker Comments Mobility Comments MAX AX2 to stand and MODA X 2 for transfer assist to guide the FWW and for balance. Pt needing lots of encouragement and step by step commands to follow. OT- Balance Assessment Sitting Balance and Reactions Static Sitting Balance Ability Good Dynamic Sitting Balance Ability Fair Standing Balance and Reactions Static Standing Balance Ability Poor Dynamic Standing Balance Ability Poor M8 OT- IP Objective Assessments Start: 08/01/21 12:34 Freq: Status: Active Protocol: Document 08/01/21 10:50 [facility] (Rec: 08/01/21 12:45 [facility] [id number]) OT-Muscle Tone Assessment Muscle Tone WNL Yes M9 OT- IP Assessment and Plan Start: 08/01/21 12:34 Freq: Status: Active Protocol: Document 08/01/21 10:50 [facility] (Rec: 08/01/21 12:45 [facility] [id number]) OT Summary Assessment and Plan Potential Rehabilitation Potential Good Analytic Complexity at Evaluation Low Summary OT Impairments Pain,Balance,Functional Mobility,Grooming,Dressing, Toileting,Bathing,Toilet Transfers,Shower Transfers, Activity Tolerance Progress Towards Goals Slow Progress due to Pain,Slow Progress due to Activity Tolerance Assessment Summary Pt main barriers are pain, steps, now needing extensive two person assist for mobility needs and for some ADL's. Pt looking to go to skilled rehab when medically stable. Pt's current care too great for her to assist her. Goals Grooming Goal Independent Dressing Goal Independent Toileting Goal Independent Bathing Goal Independent Toilet Transfer Goal Independent Shower Transfer Goal Independent Days to Meet Goals 25 Frequency of Treatment Frequency Of Treatment Once a Day Treatment Plan OT Treatment Plan ADL Training,Functional Mobility,Patient/Family Education,Discharge Planning Other Treatment Recommendations and Next Transfer to [facility] with MAX AX 1 Treatment Focus with FWW. Discharge Recommendations OT Discharge Recommendations SNF Rehab Transportation Needs at Discharge Wheelchair/Cabulance
--- NOTE | 2021-08-01 14:37 | PT-IP ANOTE ---
Pt refused PT in pm when arrived 1438, pt stated really tired with lower level pain 2-3/10 medication 30 min ago, just got back into bed with CIVILIAN JAIL OFFICER, was able to transfer chair>BSC> chair 2 person. Pt requested no therapy this afternoon, will be more willing in the morning. will be back about 1030 am if needed. Both pt and think her going to SNF for further skilled rehab would be more beneficial with 2 persons needed and not having a 2nd person to help him at this time. Pt was not see this tx, will assess progress tomorrow. Check if premedicated before tx.
[2021-08-01] MEDS: ACETAMINOPHEN 325 MG TABLET 650 MG PO (15:31)
[2021-08-01 19:34] VITALS: O2SAT 99
[2021-08-01 20:00] VITALS: BP 119/66; PULSE 88; RESP 18; TEMP 36.6; O2SAT 98
[2021-08-01] MEDS: PREGABALIN 75 MG CAPSULE 150 MG PO (21:14)
[2021-08-01] MEDS: SENNOSIDES 8.6 MG TABLET 17.2 MG PO (21:14)
[2021-08-01] MEDS: TRIMETH/SULFA 160/800 (DS) TABLET 0.5 TAB PO (21:15)
[2021-08-02 03:11] VITALS: BP 116/63; PULSE 65; RESP 18; TEMP 36.6; O2SAT 99
[2021-08-02] MEDS: OXYCODONE IR 10 MG TABLET PO ×3 (03:57→16:55)
[2021-08-02] MEDS: PANTOPRAZOLE DR 20 MG TABLET PO ×2 (06:25→21:23)
[2021-08-02] MEDS: LEVOTHYROXINE 75 MCG TABLET PO (06:25)
--- NOTE | 2021-08-02 07:53 | PM.PNPO.1 ---
Subjective Subjective Date Patient Seen: 08/02/21 Time Patient Seen: 07:54 Interval history: Lying in bed supine. Much more comfortable today, still c/o pain across low back, denies leg pain. Eating and voiding without difficulty. Planning on going to SNF tomorrow. Exam Vital Signs (past 8 hours): - 08/02/21 03:11 Temperature 97.9 F Pulse Rate 65 Respiratory Rate 18 Blood Pressure 116/63 Pulse Oximetry 99 Oxygen Delivery Method Room Air Oxygen Flow Rate 0 Narrative Exam Narrative: 5/5 strength in hip flexors, quadriceps, hamstrings, DF, PF, EHL bilaterally. Sensation to light touch intact throughout BLE. Calves soft, compressible, nontender and without palpable cords or masses. Objective Labs Result Diagrams: 07/31/21 04:25 [facility] Medical History (Updated 08/01/21 @ 11:02 by Brenda Holloway PA-C) Achilles tendon injury Acid reflux Adhesion of intestine Arthritis Asthma DJD (degenerative joint disease) Epileptic seizure Fibromyalgia H/O benign breast biopsy History of UTI Low back pain Nephritis Numbness of both lower extremities Obesity (BMI 30.0-34.9) Other secondary scoliosis, lumbar region Reflex neurogenic bladder Renal failure, unspecified Scoliosis Spinal stenosis Spinal stenosis, lumbar region with neurogenic claudication Spondylolisthesis of lumbar region Thyroid disease Tortuous colon Weakness of both lower extremities Surgical History (Updated 07/31/21 @ 07:55 by Brenda Holloway PA-C) History of Achilles tendon repair History of angioplasty History of bilateral tubal ligation History of knee replacement History of laparoscopy History of tonsillectomy History of tubal ligation Hx of breast biopsy Social History household members: spouse Smoking Status: Never smoker alcohol intake: current Assessment & Plan Post-op Assessment and plan (1) S/P lumbar fusion: Assessment and Plan narrative: Continue PT, multimodal pain control, SCDs for VTE prophylaxis. Plan to d/c to SNF tomorrow. (2) Acute postoperative anemia due to expected blood loss: Assessment and Plan narrative: No intervention needed at this time. (3) Obesity (BMI 30.0-34.9): (4) Acid reflux: Assessment and Plan narrative: Continue rabeprazole. Postoperative Procedures: Procedures Operation Date: 07/30/21 07:45 Actual Procedure Side Surgeon p L3-4, L4-5 transforminal lumbar interbody fusion with posterior instrumentation, robot Jj Vaughn MD Postoperative day: 3 Quality VTE Deep Vein Thrombosis/Pulmonary Embolism Present on Admission: No
[2021-08-02] MEDS: SERTRALINE 50 MG TABLET 100 MG PO (09:55)
[2021-08-02] MEDS: LORATADINE 10 MG TABLET PO (09:55)
[2021-08-02] MEDS: MULTIVITAMIN 1 TABLET 1 TAB PO (09:56)
[2021-08-02] MEDS: DOCUSATE 100 MG CAPSULE PO ×2 (09:56→21:23)
[2021-08-02] MEDS: CALCIUM CARB/VIT D3 500/200 TABLET 1 EACH PO (09:56)
[2021-08-02 10:00] VITALS: BP 108/59; PULSE 67; RESP 16; TEMP 36.2; O2SAT 92
--- NOTE | 2021-08-02 11:04 | PT.IPTN ---
Current Diagnoses Acute posthemorrhagic anemia (07/31/21) Obesity, unspecified (07/31/21) Gastro-esophageal reflux disease without esophagitis (07/31/21) Spondylolisthesis, lumbar region (07/31/21) Spinal stenosis, lumbar region with neurogenic claudication (07/31/21) Arthrodesis status (07/31/21) Surgery Performed Operation Date: 07/30/21 07:45 Actual Procedures p L3-4, L4-5 transforminal lumbar interbody fusion with posterior instrumentation, robot - Jj Vaughn MD Physical Therapy Treatment Note M2 PT-IP Current Condition Start: 07/31/21 11:05 Freq: NEEDED Status: Active Protocol: Document 08/01/21 10:49 SP (Rec: 08/01/21 12:48 SP [id number]) Physical Therapy Current Condition Current Condition Evaluation Date 07/31/21 Treatment Diagnosis s/p L3-4, 4-5 TLIF; difficulty in walking Onset Date 07/30/21 M3 PT-IP Subjective Start: 07/31/21 11:05 Freq: NEEDED Status: Active Protocol: Document 08/02/21 10:41 KS (Rec: 08/02/21 12:39 KS [id number]) Subjective Physical Therapy Visit Type Type Treatment Note Visit Start Time 10:41 Visit Stop Time 11:04 Total Visit Minutes 23 Notes Pts present during treatment. Number of TRUCK CRANE OPERATOR Visits 2 Physical Therapy Visit Comments Patient Comments Pt agreeable to working w/ therapy. Therapy Pain Assessment Pain When Pain Assessed At Rest Pain Present Pain Present Pain Reported M4 PT-IP Mobility and Gait Start: 07/31/21 11:05 Freq: NEEDED Status: Active Protocol: Document 08/02/21 10:41 KS (Rec: 08/02/21 12:39 KS [id number]) PT-Bed Mobility Assessment Rolling Type of Rolling Log Rolling,Roll to Right,Roll to Left Level of Assist Moderate Assistance Supine to Sit Supine to Sit Maximum Assistance,1 Person Assistance Sit to Supine Sit to Supine Maximum Assistance,1 Person Assistance Scooting Scooting to Edge of Bed Maximum Assistance PT-Transfer Assessment Sit to and From Stand Sit to and from Stand Moderate Assistance,2 Person Assistance,Use of Upper Extremities Equipment Transfer Assistive Device Gait Belt,Front Wheeled Walker Orthotic/Prosthetic Devices or Brace: No Transfers Transfer Destination Bed Transfer Technique Pt ambulated w/ FWW Transfer Ability Level of Assist Moderate Assistance,Maximum Assistance,1 Person Assistance ,Use of Upper Extremities Comments Mobility Comments Pt in bed upon arrival from therapy and agreeable to try ambulating. Pts present and very encouraging. Pt able to recall 3/3 spinal precautions. Mod A for logroll and Max A for sup<>sit and scooting EOB. Mod A x2 for sit <>stand w/ FWW (pts provided additional assist, however 2PA probably not necessary.) Pt then ambulated ~20 ft w/ FWW CGA. Slow tyrone w/ decreased stride and minimal ground clearance due to pain and weakness. Pt refused to sit in chair so transferred back to bed w/ Max A for LE guidance for sit<> sidelying. Pt left in bed w/ all needs in reach. Gait Assessment Gait Gait Assistance Required: Contact Guard Assist,1 Person Assist Distance (Feet) 20 Assistive Devices Assistive Device Gait Belt,Front Wheeled Walker Gait Deviations General Gait Pattern Decreased Stride Length, Decreased Feet Clearance Factors Limiting Gait Function Factors Limiting Gait Function Decreased Activity Tolerance, Decreased Strength,Pain,Poor Balance Comments Gait Comments Pt able to tolerate 20 ft ambulation w/ FWW CGA. Stair Climbing Assessment Comments Stair Climbing Comments Unable to assess today. PT-Balance Assessment Sitting Balance and Reactions Static Sitting Balance Ability Good Dynamic Sitting Balance Ability Fair Standing Balance and Reactions Static Standing Balance Ability Good Dynamic Standing Balance Ability Fair Device Used FWW M5 PT-IP Objective Assessments Start: 07/31/21 11:05 Freq: NEEDED Status: Active Protocol: Document 07/31/21 09:30 AB (Rec: 07/31/21 11:17 AB [id number]) Orientation Orientation/Cognition Level of Alertness Alert Orientation Name,Place,Situation Safety Awareness Decreased Safety Awareness Memory Description Short Term Impaired Gross Range of Motion Lower Extremity ROM Assessment Within Functional Limits Strength Lower Extremity Strength Assessment Bilaterally Impaired Comments Strength Comments RLE: 3/5 LLE: 3-/5 Sensation Assessment Sensation Gross Sensation Left LE Impaired Sensation Description Numbness Comments Sensation Comments chronic LLE numbness Muscle Tone Muscle Tone WNL Yes M6 PT-IP Treatment Start: 07/31/21 11:05 Freq: NEEDED Status: Active Protocol: Document 08/02/21 10:41 KS (Rec: 08/02/21 12:39 KS [id number]) Physical Therapy Treatment Exercises Exercises Ankle Pumps Education Education Provided Precautions,Safety M7 PT-IP Assessment and Plan Start: 07/31/21 11:05 Freq: NEEDED Status: Active Protocol: Document 08/02/21 10:41 KS (Rec: 08/02/21 12:39 KS [id number]) PT Summary Assessment and Plan Potential Rehabilitation Potential Fair Status of Condition at Evaluation Evolving Summary Impairments Pain,ROM,Strength,Balance, Coordination,Sensation,Tone, Cognition,Bed Mobility, Transfers,Gait,Activity Tolerance Progress Towards Goals Slow Progress due to Pain,Slow Progress due to Medical Issues,Slow Progress due to Activity Tolerance Assessment Summary Pt showed improvement w/ mobility and activity tolerance today. Mod to mAx A x2 for bed mobility, Max A for scooting EOB, Mod A x2 for sit<>stand, and just CGA for 20 ft ambulation w/ FWW. Pt remains limited by pain and low tolerance for activity and will require SNF to improve. Goals Bed Mobility Goal Minimal Assistance Transfer Goal Minimal Assistance,Front Wheeled Walker Gait Goal Minimal Assistance,Front Wheel Walker Gait Distance 50 Other Goals improve bed mobility and transfer using FWW CGA improve ambulation using FWW CGA ~ 100 ft up/down 2 steps L rail CGA Days to Meet Goals 10 Frequency of Treatment Frequency Of Treatment Twice a Day Treatment Plan Physical Therapy Treatment Plan Bed Mobility Training,Transfer Training,Gait Training, Therapeutic Exercise,Balance Retraining,Post Op Education, Discharge Planning,Hot or Cold Pack,Neuromuscular Re-ed, Coordination Retraining,Manual Therapy Precautions Lumbar Precautions Log Roll,No Twisting,Limit Bending,Lifting Restriction of 10 lbs,Gait Belt above Incisional Area Other Precautions Good recall to 3/3 precautions . Recommendations To Nursing Amount of Assist Needed 2 Person Assist Discharge Recommendations PT Discharge Recommendations SNF Rehab Transportation Needs at Discharge Wheelchair/Cabulance
[2021-08-02] MEDS: HYDROMORPHONE 0.5 MG INJ 0.2 MG IV (11:48)
--- NOTE | 2021-08-02 11:57 | CM.DPC ---
DCP SNF Planning: Per Ortho PA, pt continues to make progress. Per ALISSON RN, pt's initial admission order was Outpt with Bed, then changed to OBS, then Inpt 07/31/21 and therefore not Medicare eligible for SNF coverage until tomorrow Fri08/03/21. SW met bedside with pt and spouse and explained role and discussed the 2 SNF referrals to [facility] and [facility] and they confirm their preference is [facility] at d/c and aware pt likely will be stable for d/c tomorrow. Spouse very supportive and attentive. SW called [facility] admissions and updated and they can accept pt tomorrow if stable for d/c. Pt will need updated COVID swab. PASRR already previously completed and COVID vax info already printed. SW called [facility] admissions and updated on pt preference [facility] and they will take pt off their list. Plan: SW to follow closely for plan of d/c to [facility] tomorrow 08/03/21 if medically stable and updated COVID swab needed. JAYNE Menendez
--- NOTE | 2021-08-02 13:06 | OT.IPNOTE ---
Pt just getting her lunch and not wanting to get up. Able to help reposition pt in the bed. Pt promised to work with PIT SUPERVISOR later, as educated to the pt of the importance of getting up and moving.
--- NOTE | 2021-08-02 13:59 | PT.IPTN ---
Current Diagnoses Acute posthemorrhagic anemia (07/31/21) Obesity, unspecified (07/31/21) Gastro-esophageal reflux disease without esophagitis (07/31/21) Spondylolisthesis, lumbar region (07/31/21) Spinal stenosis, lumbar region with neurogenic claudication (07/31/21) Arthrodesis status (07/31/21) Surgery Performed Operation Date: 07/30/21 07:45 Actual Procedures p L3-4, L4-5 transforminal lumbar interbody fusion with posterior instrumentation, robot - Jj Vaughn MD Physical Therapy Treatment Note M2 PT-IP Current Condition Start: 07/31/21 11:05 Freq: NEEDED Status: Active Protocol: Document 08/01/21 10:49 SP (Rec: 08/01/21 12:48 SP [id number]) Physical Therapy Current Condition Current Condition Evaluation Date 07/31/21 Treatment Diagnosis s/p L3-4, 4-5 TLIF; difficulty in walking Onset Date 07/30/21 M3 PT-IP Subjective Start: 07/31/21 11:05 Freq: NEEDED Status: Active Protocol: Document 08/02/21 13:25 KS (Rec: 08/02/21 14:28 KS [id number]) Subjective Physical Therapy Visit Type Type Treatment Note Visit Start Time 13:25 Visit Stop Time 13:59 Total Visit Minutes 34 Number of LIBERAL ARTS AND HUMANITIES CHAIR Visits 3 Physical Therapy Visit Comments Patient Comments Pt agreeable to working w/ therapy. Therapy Pain Assessment Pain When Pain Assessed At Rest Pain Present Pain Present Pain Reported M4 PT-IP Mobility and Gait Start: 07/31/21 11:05 Freq: NEEDED Status: Active Protocol: Document 08/02/21 13:25 KS (Rec: 08/02/21 14:28 KS [id number]) PT-Bed Mobility Assessment Rolling Type of Rolling Log Rolling,Roll to Left Level of Assist Moderate Assistance Supine to Sit Supine to Sit Maximum Assistance,1 Person Assistance Sit to Supine Sit to Supine Maximum Assistance,1 Person Assistance Scooting Scooting to Edge of Bed Moderate Assistance PT-Transfer Assessment Sit to and From Stand Sit to and from Stand Maximum Assistance,1 Person Assistance,Use of Upper Extremities Equipment Transfer Assistive Device Gait Belt,Front Wheeled Walker Orthotic/Prosthetic Devices or Brace: No Transfers Transfer Destination Bed Transfer Technique Pt ambulated w/ FWW Transfer Ability Level of Assist Moderate Assistance,Maximum Assistance,1 Person Assistance ,Use of Upper Extremities Comments Mobility Comments Pt in bed upon arrival and agreeable to ambulation. Pt Mod A for logroll and Max A for sup<>Sit and Mod A for scooting EOB. Applied pts shoes b/c pt has leg length discrepancy w/ lift in R shoe. Max A and max cues for sequencing and hand placement for sit<>Stand w/ FWW. Pt ambulated ~20 ft to toilet w/ FWW very slowly taking small cautious steps. After voiding, pt required Max A and max cues again fro sti<>stand but ambulated additional 20 ft back to bed w/ FWW and CGA. Max A for sit>sup for LE elevation into bed. Pt left in bed w/ all needs in reach reporting fatigue. Gait Assessment Gait Gait Assistance Required: Contact Guard Assist,1 Person Assist Distance (Feet) 40 Assistive Devices Assistive Device Gait Belt,Front Wheeled Walker Gait Deviations General Gait Pattern Decreased Stride Length, Decreased Feet Clearance Factors Limiting Gait Function Factors Limiting Gait Function Decreased Activity Tolerance, Decreased Strength,Pain,Poor Balance Comments Gait Comments Pt able to tolerate 20x2 ft ambulation w/ FWW CGA. PT-Balance Assessment Sitting Balance and Reactions Static Sitting Balance Ability Good Dynamic Sitting Balance Ability Fair Standing Balance and Reactions Static Standing Balance Ability Good Dynamic Standing Balance Ability Fair Device Used FWW M5 PT-IP Objective Assessments Start: 07/31/21 11:05 Freq: NEEDED Status: Active Protocol: Document 07/31/21 09:30 AB (Rec: 07/31/21 11:17 AB [id number]) Orientation Orientation/Cognition Level of Alertness Alert Orientation Name,Place,Situation Safety Awareness Decreased Safety Awareness Memory Description Short Term Impaired Gross Range of Motion Lower Extremity ROM Assessment Within Functional Limits Strength Lower Extremity Strength Assessment Bilaterally Impaired Comments Strength Comments RLE: 3/5 LLE: 3-/5 Sensation Assessment Sensation Gross Sensation Left LE Impaired Sensation Description Numbness Comments Sensation Comments chronic LLE numbness Muscle Tone Muscle Tone WNL Yes M6 PT-IP Treatment Start: 07/31/21 11:05 Freq: NEEDED Status: Active Protocol: Document 08/02/21 13:25 KS (Rec: 08/02/21 14:28 KS [id number]) Physical Therapy Treatment Education Education Provided Precautions,Safety M7 PT-IP Assessment and Plan Start: 07/31/21 11:05 Freq: NEEDED Status: Active Protocol: Document 08/02/21 13:25 KS (Rec: 08/02/21 14:28 KS [id number]) PT Summary Assessment and Plan Potential Rehabilitation Potential Fair Status of Condition at Evaluation Evolving Summary Impairments Pain,ROM,Strength,Balance, Coordination,Sensation,Tone, Cognition,Bed Mobility, Transfers,Gait,Activity Tolerance Progress Towards Goals Slow Progress due to Pain,Slow Progress due to Medical Issues,Slow Progress due to Activity Tolerance Assessment Summary Pt making small improvements, but overall still requiring Mod to Max A for bed mobility and Max A for sit<>stand w/ FWW. Able to tolerate increased ambulation distance. She will require SNF to improve functional mobility independence and activity tolerance. Goals Bed Mobility Goal Minimal Assistance Transfer Goal Minimal Assistance,Front Wheeled Walker Gait Goal Minimal Assistance,Front Wheel Walker Gait Distance 50 Other Goals improve bed mobility and transfer using FWW CGA improve ambulation using FWW CGA ~ 100 ft up/down 2 steps L rail CGA Days to Meet Goals 10 Frequency of Treatment Frequency Of Treatment Twice a Day Treatment Plan Physical Therapy Treatment Plan Bed Mobility Training,Transfer Training,Gait Training, Therapeutic Exercise,Balance Retraining,Post Op Education, Discharge Planning,Hot or Cold Pack,Neuromuscular Re-ed, Coordination Retraining,Manual Therapy Precautions Lumbar Precautions Log Roll,No Twisting,Limit Bending,Lifting Restriction of 10 lbs,Gait Belt above Incisional Area Other Precautions Good recall to 3/3 precautions . Recommendations To Nursing Amount of Assist Needed 2 Person Assist Discharge Recommendations PT Discharge Recommendations SNF Rehab Transportation Needs at Discharge Wheelchair/Cabulance
[2021-08-02 19:45] VITALS: O2SAT 96
[2021-08-02 20:00] VITALS: BP 111/66; PULSE 91; RESP 14; TEMP 36.4; O2SAT 97
[2021-08-02] MEDS: TRIMETH/SULFA 160/800 (DS) TABLET 0.5 TAB PO (21:23)
[2021-08-02] MEDS: ACETAMINOPHEN 325 MG TABLET 650 MG PO (21:23)
[2021-08-02] MEDS: SENNOSIDES 8.6 MG TABLET 17.2 MG PO (21:23)
[2021-08-02] MEDS: PREGABALIN 75 MG CAPSULE 150 MG PO (21:23)
[2021-08-03] VITALS: BP 104/54; PULSE 78; RESP 16; TEMP 35.8; O2SAT 96
[2021-08-03] MEDS: ACETAMINOPHEN 325 MG TABLET 650 MG PO (03:29)
[2021-08-03 03:36] VITALS: BP 100/59; PULSE 72; RESP 18; TEMP 36.1; O2SAT 95
[2021-08-03] MEDS: LEVOTHYROXINE 75 MCG TABLET PO (05:53)
[2021-08-03] MEDS: PANTOPRAZOLE DR 20 MG TABLET PO (05:53)
[2021-08-03 08:15] VITALS: BP 124/72; PULSE 66; RESP 16; TEMP 36.4; O2SAT 97
--- NOTE | 2021-08-03 09:15 | P.DS_ITS ---
History of Present Illness History of Present Illness Date Patient Seen: 08/03/21 Time Patient Seen: 09:18 Chief complaint: TLIF *OPB* Narrative: Operative Date/Time/Diagnoses Date of procedure: 07/30/21 Time of procedure: 07:45 Pre-op diagnosis: 1. L3-4, L4-5 spinal stenosis with radiculopathy 2. Lumbar scoliosis Post-op diagnosis: same Procedure & Clinicians Procedure: ?1. L3-4, L4-5 Postero-lateral and posterior interbody fusion 2. L3-4, L4-5 interbody cage placement. 3. L3-4, L4-5 decompressive laminectomy with bilateral facetecomies 4. L3-4, L4-5 Posterior segmental instrumentation 5. [place]chkiss of bone marrow from iliac crest 6. Utilization of microsurgical technique and operating microscope 7. Utilization of robotic navigation surgery Same procedure as scheduled: Yes Indications: Patient has been having chronic back pain and worsening lumbar radiculopathy.? Patient had significant lumbar scoliosis with severe central and foraminal stenosis causing her radiculopathy and symptoms of neurogenic claudication. Patient failed multiple conservative management with worsening pain weakness and numbness in her lower extremity.? Patient has been having difficulty performing activity of daily living.? After discussing risks benefits of treatment options, patient elected proceed with surgery. Surgeon: Jj Vaughn Data Management Analyst: Brenda Holloway Click Yes if Unassisted: No Anesthesia Type: General Operative Notes Closure Type: primary Specimen(s): none sent Prosthetic devices, grafts, tissues, transplants, or devices: Globus CREO MIS screws, Rise cages Applied: catheter Estimated Blood Loss (mL): 150 Blood products transfused: none Discharge Providers Provider Date of admission: 07/31/21 10:49 Discharge Date: 08/03/21 Primary care physician: Harpal Velazquez MD Consults: 07/30/21 14:11 Consult to Occupational Therapy Evaluate & Treat Comment: Physician Instructions: Evaluate and treat Consult to Physical Therapy Evaluate & Treat Comment: Physician Instructions: Evaluate and Treat Discharge provider: Brenda Holloway PA-C Summary Hospital Course Discharge Diagnosis: s/p L3-4, L4-5 transforaminal lumbar interbody fusion w/ posterior instrumentation Acute anemia d/t expected surgical blood loss Obesity Hospital Course: Ms Lindsey's hospital course was remarkable for difficulty with postoperative pain control and slow progress w/ PT. Due to her need for maximum assistance, PT felt she would be safest to discharge to a SNF for further rehab prior to going home. On POD# 4, she had better control of her pain, which was limited to her lumbar region only. She was eating and voiding without difficulty. Exam Vital Signs (past 8 hours): - 08/03/21 03:36 Temperature 97 F L Pulse Rate 72 Respiratory Rate 18 Blood Pressure 100/59 L Pulse Oximetry 95 Oxygen Delivery Method Room Air Oxygen Flow Rate 0 Narrative Exam Narrative: 5/5 strength in hip flexors, quadriceps, hamstrings, DF, PF, EHL bilaterally. Sensation to light touch intact in BLE. Calves soft, compressible, nontender and without palpable cords or masses. Dressing has been replaced since surgery and is CDI. Objective Labs Result Diagrams: 07/31/21 04:25 [facility] Medical History (Updated 08/01/21 @ 11:02 by Brenda Holloway PA-C) Achilles tendon injury Acid reflux Adhesion of intestine Arthritis Asthma DJD (degenerative joint disease) Epileptic seizure Fibromyalgia H/O benign breast biopsy History of UTI Low back pain Nephritis Numbness of both lower extremities Obesity (BMI 30.0-34.9) Other secondary scoliosis, lumbar region Reflex neurogenic bladder Renal failure, unspecified Scoliosis Spinal stenosis Spinal stenosis, lumbar region with neurogenic claudication Spondylolisthesis of lumbar region Thyroid disease Tortuous colon Weakness of both lower extremities Surgical History (Updated 07/31/21 @ 07:55 by Brenda Holloway PA-C) History of Achilles tendon repair History of angioplasty History of bilateral tubal ligation History of knee replacement History of laparoscopy History of tonsillectomy History of tubal ligation Hx of breast biopsy Social History household members: spouse Smoking Status: Never smoker alcohol intake: current Discharge Assessment & Plan Assessment and Plan Assessment: s/p L3-4, L4-5 transforaminal lumbar interbody fusion w/ posterior instrumentation Acute anemia d/t expected surgical blood loss Obesity Plan of Treatment: SNF rehab for continued physical therapy. Discharge Plan Discharge Plan Patient Disposition: SNF Transfer to: [facility] Discharge orders & Medications Prescriptions: New acetaminophen 325 mg Tablet 650 mg PO Q6HR PRN (Reason: Pain, Mild (1-3)) Qty: 120 2RF docusate sodium 100 mg Capsule 100 mg PO BID PRN (Reason: constipation) Qty: 60 0RF hydroxyzine pamoate 25 mg Capsule 25 mg PO Q4HR PRN (Reason: muscle spasm) Qty: 120 2RF oxycodone 5 mg tablet 10 mg PO Q4-6H PRN (Reason: pain (scale score 7-10)) Qty: 60 0RF Continued zaleplon 10 mg capsule 10 mg PO DAILY PRN (Reason: Sleep) 0RF pregabalin [Lyrica] 150 mg capsule 150 mg PO BEDTIME 0RF rabeprazole 20 mg tablet,delayed release (DR/EC) 20 mg PO BID 0RF Rx Instructions: Take 1 tablet by oral route every day swallowing whole. Do not crush, chew, and/or divide. levothyroxine 75 mcg capsule 75 mcg PO DAILY 0RF Flovent HFA 110 mcg/actuation HFA aerosol inhaler 2 puff INHALATION BID 0RF celecoxib [Celebrex] 200 mg capsule 200 mg PO BID 0RF Zyrtec 10 mg capsule 10 mg PO DAILY 0RF multivitamin [Multiple Vitamins] Tablet 1 tab PO DAILY 0RF calcium citrate 250 mg calcium tablet 600 mg PO DAILY 0RF cranberry 500 mg capsule 500 mg PO DAILY 0RF lysine 1,000 mg tablet 1,000 mg PO DAILY 0RF sulfamethoxazole-trimethoprim 400-80 mg Tablet 0.5 tab PO DAILY 0RF albuterol sulfate [ProAir HFA] 90 mcg/actuation HFA aerosol inhaler 2 puff INHALATION Q4-6H PRN (Reason: Rescue Inhaler) 0RF sertraline [Zoloft] 50 mg Tablet 100 mg PO DAILY 0RF Follow up/Referrals: Harpal Velazquez MD [Primary Care Provider] - Jj Vaughn MD [Physician] - As previously scheduled (Follow up with Dr Vaughn on 08/14/2021 @ 10:50 am at [id number] in [place].) Diet/Activity/Treatments Diet: Diet as Tolerated Activity: Walk frequently! No deep bending (more than 90 degrees) or twisting at the waist. No lifting > 20#. Cold/Heat Therapy: Heating pad to back as needed for pain/muscle relaxation. Skin/Wound/Dressing Care Report to your healthcare provider any signs of infection, such as:: chills, fever, night sweats, unusual drainage and unusual redness Dressing: May shower; keep dressing as dry as possible. If it becomes wet inside, change it with clean, dry gauze. Do not bathe or otherwise soak incisions. Do not apply creams, lotions, or ointments to incisions. [facility] Rehab type: Physical therapy and Occupational therapy Visit Report/Discharge Packet Instructions: DI for Prescription Opioid Use, DI for Transforaminal Lumbar Interbody Fusion Stand Alone Forms: Surgery Discharge Discharge Data Primary Care Provider: Harpal Velazquez VTE Deep Vein Thrombosis/Pulmonary Embolism Present on Admission: No
[2021-08-03] MEDS: DOCUSATE 100 MG CAPSULE PO (09:21)
[2021-08-03] MEDS: CALCIUM CARB/VIT D3 500/200 TABLET 1 EACH PO (09:21)
[2021-08-03] MEDS: OXYCODONE IR 10 MG TABLET PO ×2 (09:21→12:42)
[2021-08-03] MEDS: MULTIVITAMIN 1 TABLET 1 TAB PO (09:21)
[2021-08-03] MEDS: LORATADINE 10 MG TABLET PO (09:21)
[2021-08-03] MEDS: SERTRALINE 50 MG TABLET 100 MG PO (09:21)
--- NOTE | 2021-08-03 10:09 | PT-IP ANOTE ---
Attempted to see pt at 10:09, pt refused PT stating she wants to prioritize shower w/ OT and save her energy for shower and upcoming d/c to SNF.
--- NOTE | 2021-08-03 10:19 | CM.DPC ---
Addendum entered by Brandi Muniz R.N. 08/03/21 12:52: Brenda completed hard copies of Lyrica and her other medication. Had Eli fax to [facility], and originals are in packet. Addendum entered by Brandi Muniz R.N. 08/03/21 10:52: COVID results are negative, updated August at [facility], she has access to computer. She also indicated that she needed a couple more scrips, one was Lyrica, and another med. Updated [facility], she will complete. Gave nurse, Diego, number for report. Original Note: DCP Cont: Let ortho PAC, Brenda Aguilar, know that [facility] can accept patient today since it is her third Medicare midnight, and updated nurse, Rodriguez. She completed orders, medication list, scrips, and DC Summary. COVID swab was collected and is pending. Faxed [facility] medication sheets, scrips, PASSR, DC Summary. Will fax over COVID results when completed. Updated patient, and updated white board at main nurses station. Plan is for draft roller picker at approximately 1300. P: Patient has discharge orders to go to [facility] with draft roller picker at 1300. Will fax over COVID results when completed. Brandi Muniz RN/Bar Gauger And Lubricator Tender
[2021-08-03 10:26] LABS: COVID19 -Nasal RAPID Negative (Negative)
--- NOTE | 2021-08-03 11:14 | OT.IP.TRT ---
Current Diagnoses Acute posthemorrhagic anemia (07/31/21) Obesity, unspecified (07/31/21) Gastro-esophageal reflux disease without esophagitis (07/31/21) Spondylolisthesis, lumbar region (07/31/21) Spinal stenosis, lumbar region with neurogenic claudication (07/31/21) Arthrodesis status (07/31/21) Surgery Performed Operation Date: 07/30/21 07:45 Actual Procedures p L3-4, L4-5 transforminal lumbar interbody fusion with posterior instrumentation, robot - Jj Vaughn MD Occupational Therapy Treatment Note M2 OT-IP Current Condition Start: 08/01/21 12:34 Freq: Status: Active Protocol: Document 08/01/21 10:50 [facility] (Rec: 08/01/21 12:45 [facility] [id number]) Occupational Therapy Current Condition Current Condition Evaluation Date 08/01/21 Treatment Diagnosis S/p L3-4, L4-5 TLIF Diagnosis Onset Date 07/30/21 M3 OT- IP Subjective and Pain Start: 08/01/21 12:34 Freq: Status: Active Protocol: Document 08/03/21 11:17 [facility] (Rec: 08/03/21 11:26 [facility] [id number]) OT- Subjective Occupational Therapy Visit Type Type Treatment Note Visit Start Time 1021 Visit Stop Time 1114 Total Visit Minutes 53 Occupational Therapy Visit Comments Patient Comments Pt wanting to take a shower. Patient/Caregiver Goals TO go home , but realizing would be best to go to skilled rehab first. OT Pain Assessment Pain When Pain Assessed At Rest Pain Present Pain Present Denied Pain M4 OT- IP ADL's Start: 08/01/21 12:34 Freq: Status: Active Protocol: Document 08/03/21 11:17 [facility] (Rec: 08/03/21 11:26 [facility] [id number]) OT ADL-Grooming General Evaluation Grooming Ability Independent Areas Needing Assistance Retrieving/Set-up of Grooming Items Comments OT Grooming Comments while seated OT ADL-Oral Care General Eval Oral Care Ability Independent Areas of Assistance Retrieving/Set-Up of Items Comments Oral Care Comments while seated OT ADL-Dressing General Eval Lower Body Dressing Ability Maximum Assistance Areas Needing Assistance Socks Comments OT Dressing Comments Pt too tired from showering and needing assist for LB dressing at this time. OT ADL-Toileting General Evaluation Toileting Ability Moderate Assistance,Maximum Assistance Comments OT Toileting Comments Assist for brief management and for completeness to wipe. OT ADL-Bathing Bathing Type Bathing Type Shower General Evaluation Bathing Ability Moderate Assistance,Maximal Assistance Comments OT Bathing Comments Assist to get her lower legs, back, and completeness for pericare needs. M5 OT- IP IADL's Start: 08/01/21 12:34 Freq: Status: Active Protocol: Document 08/01/21 10:50 [facility] (Rec: 08/01/21 12:45 [facility] [id number]) OT-Instrumental Activities of Daily Living Home Safety Awareness Awareness of Need for Assistance at Home Good Awareness Ability to Problem Solve Emergency Able to Problem Solve Situations Home Safety Comments Pt has a very supportive to assist with her needs. Apprentice Funeral Director Apprentice Funeral Director Caregiver Provides Assist M6 OT- IP Functional Cognition Start: 08/01/21 12:34 Freq: Status: Active Protocol: Document 08/03/21 11:17 [facility] (Rec: 08/03/21 11:26 [facility] [id number]) Cognitive Factors Limiting Selfcare Function Cognitive Ability Level of Alertness Alert Patient Orientation Name,Place,Situation Attention Span Ability Capable of Focused Attention, Capable of Sustained Attention Ability to Follow Commands Able to Follow One Step Commands with Increased Time, Able to Follow One Step Commands with Repetition Cognitive Comments Cognitive Assessment Comments Pt able to follow commands for ADL and mobility needs. M7 OT- IP Mobility and Balance Start: 08/01/21 12:34 Freq: Status: Active Protocol: Document 08/03/21 11:17 [facility] (Rec: 08/03/21 11:26 [facility] [id number]) OT- Bed Mobility Assessment Supine to Sit Supine to Sit Assist Contact Guard Assistance, Bedrails OT-Transfer Assessment Sit to and From Stand Sit to and from Stand Maximum Assistance Transfers Transfer Ability Moderate Assistance Technique Transfer Destination Bed,Chair,Shower Stall Transfer Technique Stand Step Pivot Devices Transfer Assistive Devices Gait Belt,Front Wheeled Walker Comments Mobility Comments MAX AX 1 to stand and pt having a hard time to stand and needing a lot of assist. Once on her feet heavy use of her arms on the FWW and PHONG to MODA when stepping over the threshold of the shower for assist balance and safety. OT- Balance Assessment Sitting Balance and Reactions Static Sitting Balance Ability Good Dynamic Sitting Balance Ability Fair Standing Balance and Reactions Static Standing Balance Ability Poor Dynamic Standing Balance Ability Poor M8 OT- IP Objective Assessments Start: 08/01/21 12:34 Freq: Status: Active Protocol: Document 08/01/21 10:50 [facility] (Rec: 08/01/21 12:45 [facility] [id number]) OT-Muscle Tone Assessment Muscle Tone WNL Yes M9 OT- IP Assessment and Plan Start: 08/01/21 12:34 Freq: Status: Active Protocol: Document 08/03/21 11:17 [facility] (Rec: 08/03/21 11:26 [facility] [id number]) OT Summary Assessment and Plan Potential Rehabilitation Potential Good Analytic Complexity at Evaluation Low Summary OT Impairments Pain,Balance,Functional Mobility,Grooming,Dressing, Toileting,Bathing,Toilet Transfers,Shower Transfers, Activity Tolerance Progress Towards Goals Progressing Toward Goals Assessment Summary Pt able to tolerate a shower today and much improved with her bed mobility today. Pt going to skilled rehab today. Pt is very motivated and cooperative. Goals Grooming Goal Independent Dressing Goal Independent Toileting Goal Independent Bathing Goal Independent Toilet Transfer Goal Independent Shower Transfer Goal Independent Days to Meet Goals 24 Frequency of Treatment Frequency Of Treatment Once a Day Treatment Plan OT Treatment Plan ADL Training,Functional Mobility,Patient/Family Education,Discharge Planning Discharge Recommendations OT Discharge Recommendations SNF Rehab Transportation Needs at Discharge Wheelchair/Cabulance
== END 2021-08-03 13:23 | DRG 455 ==
LOC: OR 11:13 → AC 11:13
PROVIDERS: Admitting Provider Orthopaedic Surgery Orthopaedic Surgery of the Spine; PCP Internal Medicine; Referring Provider Orthopaedic Surgery Orthopaedic Surgery of the Spine; Visit Provider Orthopaedic Surgery Orthopaedic Surgery of the Spine
PROC: 0SG10AJ Fusion of 2 or more Lumbar Vertebral Joints with Interbody Fusion Device, Posterior Approach, Anterior Column, Open Approach (ICD-10-PCS; principal; 2021-07-30 07:45)
DX: M48.062 Spinal stenosis, lumbar region with neurogenic claudication (principal); M43.16 Spondylolisthesis, lumbar region; M41.56 Other secondary scoliosis, lumbar region; M54.16 Radiculopathy, lumbar region; G89.18 Other acute postprocedural pain; K21.9 Gastro-esophageal reflux disease without esophagitis; E07.9 Disorder of thyroid, unspecified; J45.909 Unspecified asthma, uncomplicated; Z20.822 Contact with and (suspected) exposure to COVID-19
CPT/HCPCS: 36415; 72100; 76000; 82962; 85014; 85018; 87635; 94640; 97116; 97162; 97165; 97530; 97535; C9803; C1713; C9290; J0171; J0330; J0690; J1100; J1170; J2405; J2704; J3010